=== PATIENT | female | born 1970 | race Two or more races ===

== ENCOUNTER → 2016-12-23 | Outpatient (CLI) | payer MEDICARE, OTHER ==
--- NOTE | 2016-12-23 16:55 | NM ---
EXAMINATION TYPE: NM bone scan whole body DATE OF EXAM: 12/23/2016 2:26 PM COMPARISON: NONE HISTORY: Lung nodule, chest pain Delayed whole-body scanning was performed following the injection of 26.4 mCi Tc 99m MDP. Images acq uired 3 hours post injection. FINDINGS: There is a spinal curvature. Soft tissue uptake is thought to be normal. Suspect there is urine conta mination present at the level of the patient's scrotum and clothing of the legs, right foot. IMPRESSION: Spinal curvature could be positional..
== END | disposition home or self-care (01) ==
LOC: RADNMMAIN 10:25
PROVIDERS: ATTEND Internal Medicine Critical Care Medicine
DX: R07.89 Other chest pain (principal); R91.8 Other nonspecific abnormal finding of lung field
CPT/HCPCS: 78306; A9503

== ENCOUNTER → 2017-01-09 | Outpatient (CLI) | payer MEDICARE, OTHER ==
--- NOTE | 2017-01-09 11:14 | CT ---
EXAMINATION TYPE: CT abdomen w con DATE OF EXAM: 01/09/2017 10:41 AM REFERENCE: Previous study dated 03/18/2016 HISTORY: R10.84 abd pain HISTORY: Lt sided pain CT DLP: 394.5 mGy Automated exposure control for dose reduction was used. TECHNIQUE: Helical acquisition through the abdomen and pelvis was obtained following the oral ingesti on of with Oral Contrast and following intravenous administration of 100 ml mL of Omnipaque 300. The data was reformatted in axial, coronal and sagittal projections. FINDINGS: There is some dependent atelectasis at the lung bases. There is no pleural or pericardial fluid. The left basilar pulmonary nodule seen on the previous examination is not visualized on today' s study. There is a moderate hiatal hernia present. There is an 8 mm lesion in the superior segment of the right lobe of the liver, unchanged from the pr evious study. The remainder of the liver, spleen and gallbladder are normal. Both adrenal glands are normal. Both kidneys demonstrate function. There is a 7.3 mm lesion in the lateral aspect of the mid polar re gion of the left kidney. This is more clearly seen on today's examination. This is too small accurate ly characterize. The pancreas is unremarkable. There is no significant retroperitoneal adenopathy. There is moderate fecal stasis. Small bowel loops are normal. No free fluid and no free air is seen. There is a mild levoscoliosis. No bony destructive lesion is seen. IMPRESSION: 1. Stable hepatic lesion. 2. Moderate hiatal hernia. 3. 7 mm lesion in the mid polar region of the left kidney, too small to characterize. 4. Constipation.
== END | disposition home or self-care (01) ==
LOC: RADCTMAIN 09:40
PROVIDERS: ATTEND Internal Medicine Critical Care Medicine
DX: K76.89 Other specified diseases of liver (principal); K44.9 Diaphragmatic hernia without obstruction or gangrene; N28.89 Other specified disorders of kidney and ureter; K59.00 Constipation, unspecified
CPT/HCPCS: 74160; Q9967

== ENCOUNTER 2018-08-19 17:10 | Emergency (ER) | payer MEDICARE, OTHER ==
[2018-08-19 17:26] VITALS: RESP 18
[2018-08-19] MEDS ORDERED: SODIUM CHLORIDE 0.9% 500 ML IV ONE (18:35)
[2018-08-19] MEDS ORDERED: PIPERACILLIN-TAZOBACTAM 3.375 GM in DEXTROSE/WATER 1 50ML.BAG IVPB STA (18:39)
--- NOTE | 2018-08-19 18:43 | ED ---
General Adult HPI - General Chief complaint: Urogenital Stated complaint: UTI Time Seen by Provider: 08/19/18 18:23 Source: patient Mode of arrival: wheelchair Limitations: no limitations - History of Present Illness Initial comments: 48-year-old female patient with developmental delay presents to the emergency department today for evaluation after receiving a positive urine culture from her doctor's office. Patient has history of recurrent urinary tract infections , caregiver reports is due to poor urinary hygiene. States that patient did complete a prescription for urinary tract infection about 2 weeks ago. Patient has been having persistent right sided pain so they retested her urine and culture was positive for corynebacterium regellii, Proteus mirabilis, E. coli, and an enterococcus faecalis. The urine sensitivity showed IV antibiotics only so they were instructed to come to the emergency department for admission. Patient's only symptom has been some right flank pain. Patient denies any fever , chills, nausea, or vomiting. Patient denies any recent rash, shortness breath , chest pain, diarrhea, constipation, back pain, numbness, tingling, dizziness, weakness, headache, visual changes, or any other complaints. They are unsure which antibiotic she just completed. - Related Data Home Medications Medication Instructions Recorded Confirmed Ascorbic Acid [Vitamin C] 500 mg PO DAILY 05/29/16 08/19/18 Chlorhexidine Gluconate [Peridex] 15 ml PO BID 05/29/16 08/19/18 Cholecalciferol [Vitamin D3] 2,000 unit PO DAILY 05/29/16 08/19/18 Citalopram Hydrobromide [CeleXA] 40 mg PO DAILY 05/29/16 08/19/18 Loratadine [Claritin] 10 mg PO DAILY 05/29/16 08/19/18 Multivitamin with Iron 1 tab PO DAILY 05/29/16 08/19/18 [Multivitamins with Iron] Ranitidine HCl 150 mg PO BID 05/29/16 08/19/18 Sennosides-Docusate Sodium 2 tab PO HS 05/29/16 08/19/18 [Senokot-S] busPIRone HCL [Buspar] 7.5 mg PO BID 05/29/16 08/19/18 Calcium Polycarbophil [Fibercon] 1,250 mg PO DAILY 10/03/16 08/19/18 Acetaminophen [Tylenol] 325 - 650 mg PO Q4H PRN 08/19/18 08/19/18 Atorvastatin [Lipitor] 10 mg PO HS 08/19/18 08/19/18 Baclofen [Lioresal] 10 mg PO TID PRN 08/19/18 08/19/18 Cyclobenzaprine [Flexeril] 15 mg PO HS 08/19/18 08/19/18 Ferrous Sulfate [Feosol] 325 mg PO DAILY 08/19/18 08/19/18 Lactulose [Constulose] 20 gm PO DAILY 08/19/18 08/19/18 Melatonin 10 mg PO HS 08/19/18 08/19/18 Nystatin [Nystop] 1 applic TOPICAL BID 08/19/18 08/19/18 Omeprazole 20 mg PO DAILY 08/19/18 08/19/18 Ondansetron HCl [Zofran] 4 mg PO Q12HR PRN 08/19/18 08/19/18 Triamcinolone 0.025% Cream 1 applic TOPICAL BID 08/19/18 08/19/18 [Kenalog 0.025% Cream] traZODone HCL [Desyrel] 100 mg PO HS 08/19/18 08/19/18 Previous Rx's Medication Instructions Recorded Fluconazole [Diflucan] 150 mg PO ONCE #1 tab 08/19/18 Allergies Allergy/AdvReac Type Severity Reaction Status Date / Time No Known Allergies Allergy Verified 08/19/18 18:30 Review of Systems ROS Statement: Those systems with pertinent positive or pertinent negative responses have been documented in the HPI. ROS Other: All systems not noted in ROS Statement are negative. Past Medical History Past Medical History: No Reported History Additional Past Medical History / Comment(s): cerbral palsy, intellectual disabilities, abd. pain History of Any Multi-Drug Resistant Organisms: None Reported Past Surgical History: Orthopedic Surgery Additional Past Surgical History / Comment(s): bilat ankles Past Anesthesia/Blood Transfusion Reactions: Unable to Obtain Past Psychological History: Anxiety, Depression Smoking Status: Never smoker Past Alcohol Use History: None Reported Past Drug Use History: None Reported - Past Family History Mother Family Medical History: Unable to Obtain General Exam Limitations: no limitations General appearance: alert, in no apparent distress, other (This is a well- developed, well-nourished adult female patient in no acute distress. Vital signs upon presentation are temperature 97.4F, pulse 97, respirations 18, blood pressure 153/97, pulse ox 99% on room air.) Eye exam: Present: normal appearance, PERRL, EOMI. Absent: scleral icterus, conjunctival injection, periorbital swelling ENT exam: Present: normal exam, normal oropharynx, mucous membranes moist Respiratory exam: Present: normal lung sounds bilaterally. Absent: respiratory distress, wheezes, rales, rhonchi, stridor Cardiovascular Exam: Present: regular rate, normal rhythm, normal heart sounds. Absent: systolic murmur, diastolic murmur, rubs, gallop, clicks GI/Abdominal exam: Present: soft, normal bowel sounds. Absent: distended, tenderness, guarding, rebound, rigid Back exam: Present: normal inspection. Absent: CVA tenderness (R), CVA tenderness (L) Neurological exam: Present: alert, oriented X3, CN II-XII intact Psychiatric exam: Present: normal affect, normal mood Skin exam: Present: warm, dry, intact, normal color. Absent: rash Course Vital Signs 08/19/18 08/19/18 08/19/18 17:22 20:46 21:37 Temperature 97.4 F L 98.2 F Pulse Rate 97 94 100 Respiratory 18 18 18 Rate Blood Pressure 153/97 161/82 162/90 O2 Sat by Pulse 99 100 99 Oximetry EKG Findings - EKG Comments: EKG Findings:: EKG obtained at 2057 shows normal sinus rhythm with an incomplete right bundle branch block. Ventricular rate is 90, P return to the 152, QRS duration 100, QT 374, QTC 457. No evidence of ST elevation or depression. Medical Decision Making - Medical Decision Making 48-year-old female patient presented to the emergency department today after having a positive urine culture results. Physical exam today is unremarkable. There is no CVA tenderness, no abdominal tenderness. Labs reviewed and did reveal an elevated white blood cell count at 10.9. Urinalysis showed no evidence for infection at this time. Patient's vital signs are stable, she is afebrile. Urine was sent for culture. During catheterization that was evidence for vulvovaginal candidiasis, patient did recently complete antibiotics. Patient be treated with Diflucan for this. I did discuss findings and results with the patient and her caregiver. They will be discharged home at this time with instructions to await urine culture results. They're instructed to follow-up with the primary care physician for recheck as soon as possible. Return parameters discussed in detail. They verbalize understanding and agree with this plan. - Lab Data Result diagrams: 08/19/18 19:00 08/19/18 19:00 Lab Results 08/19/18 08/19/18 08/19/18 Range/Units 19:00 19:00 20:23 WBC 10.9 H (3.8-10.6) k/uL RBC 4.99 (3.80-5.40) m/uL Hgb 14.1 (11.4-16.0) gm/dL Hct 42.7 (34.0-46.0) % MCV 85.6 (80.0-100.0) fL MCH 28.2 (25.0-35.0) pg MCHC 33.0 (31.0-37.0) g/dL RDW 13.4 (11.5-15.5) % Plt Count 316 (150-450) k/uL Neutrophils % 74 % Lymphocytes % 19 % Monocytes % 4 % Eosinophils % 2 % Basophils % 1 % Neutrophils # 8.0 H (1.3-7.7) k/uL Lymphocytes # 2.0 (1.0-4.8) k/uL Monocytes # 0.4 (0-1.0) k/uL Eosinophils # 0.2 (0-0.7) k/uL Basophils # 0.1 (0-0.2) k/uL Sodium 140 (137-145) mmol/L Potassium 4.8 (3.5-5.1) mmol/L Chloride 104 (98-107) mmol/L Carbon Dioxide 24 (22-30) mmol/L Anion Gap 12 mmol/L BUN 16 (7-17) mg/dL Creatinine 0.61 (0.52-1.04) mg/dL Est GFR (CKD-EPI)AfAm >90 (>60 ml/min/1.73 sqM) Est GFR (CKD-EPI)NonAf >90 (>60 ml/min/1.73 sqM) Glucose 100 H (74-99) mg/dL Calcium 9.7 (8.4-10.2) mg/dL Total Bilirubin 0.4 (0.2-1.3) mg/dL AST 25 (14-36) U/L ALT 37 (9-52) U/L Alkaline Phosphatase 100 (38-126) U/L Total Protein 7.3 (6.3-8.2) g/dL Albumin 4.5 (3.5-5.0) g/dL Urine Color Light Yellow Urine Appearance Clear (Clear) Urine pH 7.0 (5.0-8.0) Ur Specific [place] 1.007 (1.001-1.035) Urine Protein Negative (Negative) Urine Glucose (UA) Negative (Negative) Urine Ketones Negative (Negative) Urine Blood Negative (Negative) Urine Nitrite Negative (Negative) Urine Bilirubin Negative (Negative) Urine Urobilinogen <2.0 (<2.0) mg/dL Ur Leukocyte Esterase Negative (Negative) Disposition Clinical Impression: Vulvovaginal candidiasis Disposition: HOME SELF-CARE Condition: Good Instructions: Yeast Infection (ED) Additional Instructions: Take medications as instructed. Follow-up with her primary care physician for recheck in 1-2 days away culture results on the urine. Return here immediately for any new, worsening, or concerning symptoms. Prescriptions: Fluconazole [Diflucan] 150 mg PO ONCE #1 tab Is patient prescribed a controlled substance at d/c from ED?: No Referrals: Joaquim Swenson MD [Primary Care Provider] - 1-2 days Time of Disposition: 21:20
[2018-08-19 19:16] LABS: Basophils # (A) 0.1 k/uL (0-0.2); Basophils % (A) 1 %; Eosinophils # (A) 0.2 k/uL (0-0.7); Eosinophils % (A) 2 %; HCT 42.7 % (34.0-46.0); HGB 14.1 gm/dL (11.4-16.0); Lymphocytes % (A) 19 %; MCH 28.2 pg (25.0-35.0); MCV 85.6 fL (80.0-100.0); Mean Platelet Volume 6.6; Monocytes # (A) 0.4 k/uL (0-1.0); Monocytes % (A) 4 %; Neutrophils % (A) 74 %; Platelet Count 316 k/uL (150-450); RBC 4.99 m/uL (3.80-5.40); RDW 13.4 % (11.5-15.5); WBC 10.9 k/uL (3.8-10.6)
[2018-08-19 19:30] LABS: ALT 37 U/L (9-52); AST 25 U/L (14-36); Albumin 4.5 g/dL (3.5-5.0); Alkaline Phosphatase 100 U/L (38-126); Anion Gap 12 mmol/L; Blood Urea Nitrogen 16 mg/dL (7-17); Calcium 9.7 mg/dL (8.4-10.2); Carbon Dioxide 24 mmol/L (22-30); Chloride 104 mmol/L (98-107); Glucose 100 mg/dL (74-99); Potassium 4.8 mmol/L (3.5-5.1); Sodium 140 mmol/L (137-145); Total Bilirubin 0.4 mg/dL (0.2-1.3); Total Protein 7.3 g/dL (6.3-8.2)
[2018-08-19 20:46] LABS: Appearance,Urine Clear (Clear); Bilirubin,Urine Negative (Negative); Blood,Urine Negative (Negative); Color,Urine Light Yellow; Glucose,Urine (UA) Negative (Negative); Ketones,Urine Negative (Negative); Leukocyte Esterase,Urine Negative (Negative); Nitrite,Urine Negative (Negative); Protein,Urine Negative (Negative); Specific Gravity,Urine 1.007 (1.001-1.035); Urobilinogen,Urine <2.0 mg/dL (<2.0)
[2018-08-19] MEDS ORDERED: FLUCONAZOLE 100 MG TAB PO ONE (21:05)
[2018-08-19 21:38] VITALS: BP 162/90; PULSE 100; TEMP 98.2
== END 2018-08-19 21:38 | disposition home or self-care (01) ==
LOC: EC 17:10
DX: B37.3 Candidiasis of vulva and vagina (principal); D72.829 Elevated white blood cell count, unspecified; F81.9 Developmental disorder of scholastic skills, unspecified; F32.9 Major depressive disorder, single episode, unspecified; F41.9 Anxiety disorder, unspecified; Z79.52 Long term (current) use of systemic steroids; Z79.899 Other long term (current) drug therapy
CPT/HCPCS: 36415; 80053; 81003; 85025; 87040; 87086; 93005; 96365; 96366; 99284

== ENCOUNTER → 2019-04-13 | Outpatient (CLI) | payer MEDICARE, OTHER | END | disposition home or self-care (01) | LOC: WWCWWP 10:13 | PROVIDERS: ATTEND Obstetrics & Gynecology | DX: Z53.9 Procedure and treatment not carried out, unspecified reason (principal) ==

== ENCOUNTER → 2019-05-03 | Outpatient (CLI) | payer MEDICARE, OTHER ==
--- NOTE | 2019-05-04 07:26 | US ---
EXAMINATION TYPE: US kidneys/renal and bladder DATE OF EXAM: 05/03/2019 COMPARISON: NONE CLINICAL HISTORY: Recurrent UTI N39.0. EXAM MEASUREMENTS: Right Kidney: 8.2 x 2.7 x 3.8 cm Left Kidney: 9.2 x 3.4 x 4.1 cm Patient scanned in wheelchair, unable to hold her breath. Technically difficult and limited study. Right Kidney: limited views measures small with mildly thickened cortex. Left Kidney: wnl as seen, limited views Bladder: Few internal echoes Bilateral Jets seen: yes There is no evidence for hydronephrosis at this point in time. No nephrolithiasis is seen. No jasbir s are identified. The urinary bladder is anechoic. Bilateral ureteral jets are seen. IMPRESSION: 1. No hydronephrosis or nephrolithiasis. There is mild right renal atrophy and mildly thinned cortex in the right. 2. There are few internal echoes within the urinary bladder that could relate to cystitis or simply r everberation artifact. Correlate with urinalysis.
== END | disposition home or self-care (01) ==
LOC: RADUSWWP 13:30
PROVIDERS: ATTEND Urology
DX: N26.1 Atrophy of kidney (terminal) (principal); R93.49 Abnormal radiologic findings on diagnostic imaging of other urinary organs
CPT/HCPCS: 76770

== ENCOUNTER → 2019-05-23 | Outpatient (CLI) | payer MEDICARE, OTHER ==
--- NOTE | 2019-05-24 09:16 | MM ---
Reason for exam: screening (asymptomatic). Last mammogram was performed 3 years and 5 months ago. Physical Findings: A clinical breast exam by your physician is recommended on an annual basis and results should be correlated with mammographic findings. MG 3D Screening Mammo W/Cad Bilateral CC and MLO view(s) were taken. Prior study comparison: December 11, 2015, bilateral MG screening mammo w CAD. October 19, 2014, bilateral MG screening mammo w CAD. The breast tissue is heterogeneously dense. This may lower the sensitivity of mammography. No suspicious abnormality. No significant changes when compared with prior studies. ASSESSMENT: Negative, BI-RAD 1 RECOMMENDATION: Routine screening mammogram of both breasts in 1 year.
== END | disposition home or self-care (01) ==
LOC: RADMAMWWP 14:40
PROVIDERS: ATTEND General Practice
DX: Z12.31 Encounter for screening mammogram for malignant neoplasm of breast (principal)
CPT/HCPCS: 77063; 77067

== ENCOUNTER 2019-05-31 16:02 | Emergency (ER) | payer MEDICARE, OTHER ==
[2019-05-31] MEDS ORDERED: PANTOPRAZOLE 40 MG/10 ML VIAL IVP STA (16:44)
[2019-05-31] MEDS ORDERED: ONDANSETRON 4 MG/2 ML VIAL IVP STA (16:44)
[2019-05-31] MEDS ORDERED: SODIUM CHLORIDE 0.9% 1,000 ML IV STA (16:44)
[2019-05-31 17:15] LABS: Basophils # (A) 0.1 k/uL (0-0.2); Basophils % (A) 1 %; Eosinophils # (A) 0.2 k/uL (0-0.7); Eosinophils % (A) 2 %; HCT 38.9 % (34.0-46.0); HGB 12.5 gm/dL (11.4-16.0); Lymphocytes # (A) 1.6 k/uL (1.0-4.8); Lymphocytes % (A) 16 %; MCHC 32.2 g/dL (31.0-37.0); MCV 86.9 fL (80.0-100.0); Mean Platelet Volume 6.4; Monocytes # (A) 0.4 k/uL (0-1.0); Monocytes % (A) 4 %; Neutrophils # (A) 7.7 k/uL (1.3-7.7); Neutrophils % (A) 76 %; Platelet Count 398 k/uL (150-450); RBC 4.47 m/uL (3.80-5.40); RDW 13.8 % (11.5-15.5); WBC 10.2 k/uL (3.8-10.6)
--- NOTE | 2019-05-31 17:20 | ED ---
GI Bleed HPI - General Chief complaint: GI Bleed Stated complaint: GI bleed Time Seen by Provider: 05/31/19 16:20 Source: patient, Caregiver Mode of arrival: wheelchair Limitations: no limitations - History of Present Illness Initial comments: The patient is a 49-year-old female with past medical history of cerebral palsy who presents to the emergency department with reported emesis. The patient started having emesis last night. Caretakers appetitive provide majority of the history. She states that she did have several episodes of dark vomit today. They deny history of similar in the past. No history of peptic ulcer disease. The patient does take ibuprofen daily. No alcohol use. She reports to mild left upper quadrant abdominal pain. She denies any melanotic stools, hematochezia or constipation. She has had a few episodes of loose stooling. No reported fevers, chills, recent antibiotic use or travel. Denies syncope or presyncope. No sick contacts with similar symptoms. Denies eating any tainted foods. She denies any chest pain, shortness of breath or hemoptysis. She is not on any blood thinning medications. She was supposed to have a colonoscopy several weeks ago however the patient didn't tolerate the prep. She's never had an EGD. There are no other alleviating, precipitating or modifying factors - Related Data Home Medications Medication Instructions Recorded Confirmed Ascorbic Acid [Vitamin C] 500 mg PO DAILY 05/29/16 05/31/19 Chlorhexidine Gluconate [Peridex] 15 ml PO BID 05/29/16 05/31/19 Citalopram Hydrobromide [CeleXA] 40 mg PO DAILY 05/29/16 05/31/19 Loratadine [Claritin] 10 mg PO DAILY 05/29/16 05/31/19 Ranitidine HCl 150 mg PO BID 05/29/16 05/31/19 Sennosides-Docusate Sodium 2 tab PO HS 05/29/16 05/31/19 [Senokot-S] busPIRone HCL [Buspar] 7.5 mg PO BID 05/29/16 05/31/19 Acetaminophen [Tylenol] 650 mg PO Q4-6H PRN 08/19/18 05/31/19 Atorvastatin [Lipitor] 10 mg PO HS 08/19/18 05/31/19 Baclofen [Lioresal] 10 mg PO TID 08/19/18 05/31/19 Cyclobenzaprine [Flexeril] 10 mg PO HS 08/19/18 05/31/19 Ferrous Sulfate [Feosol] 325 mg PO DAILY 08/19/18 05/31/19 Lactulose [Constulose] 30 gm PO DAILY 08/19/18 05/31/19 Melatonin 10 mg PO HS 08/19/18 05/31/19 Nystatin [Nystop] 1 applic TOPICAL BID 08/19/18 05/31/19 Omeprazole 20 mg PO DAILY 08/19/18 05/31/19 Ondansetron HCl [Zofran] 4 mg PO Q12HR PRN 08/19/18 05/31/19 Triamcinolone 0.025% Cream 1 applic TOPICAL BID 08/19/18 05/31/19 [Kenalog 0.025% Cream] traZODone HCL [Desyrel] 100 mg PO HS 08/19/18 05/31/19 Butalb/APAP/Caff 50-325-40Mg 1 tab PO BID PRN 05/12/19 05/31/19 [Fioricet 50-325-40] Cetaphil Cleanser 1 applic TOPICAL BID 05/12/19 05/31/19 Hydrochlorothiazide [Hydrodiuril] 25 mg PO DAILY 05/12/19 05/31/19 Ibuprofen [Motrin] 600 mg PO BID 05/12/19 05/31/19 Metoprolol Succinate [Toprol XL] 25 mg PO DAILY 05/12/19 05/31/19 Multivit-Min/FA/Lycopen/Lutein 1 tab PO DAILY 05/12/19 05/31/19 [Centrum Silver Tablet] Oxybutynin Chloride [Ditropan] 5 mg PO TID 05/12/19 05/31/19 Calcium Polycarbophil [Fiber-Lax] 625 mg PO DAILY 05/31/19 05/31/19 Cholecalciferol (Vitamin D3) 2,000 unit PO DAILY 05/31/19 05/31/19 [Vitamin D3] Cyclobenzaprine [Flexeril] 5 mg PO HS 05/31/19 05/31/19 Allergies Allergy/AdvReac Type Severity Reaction Status Date / Time No Known Allergies Allergy Verified 07/02/19 17:04 Review of Systems ROS Statement: Those systems with pertinent positive or pertinent negative responses have been documented in the HPI. ROS Other: All systems not noted in ROS Statement are negative. Past Medical History Past Medical History: Hypertension, Musculoskeletal Disorder Additional Past Medical History / Comment(s): Cerbral palsy, intellectual disa bilities, mixed incontinance. ALERT & ORIENTED. USES WHEELCHAIR, CAN BEAR WGT W/ ASSISTANCE, UNABLE TO TWIST/BEND. 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 Abd pain/Constipation. History of Any Multi-Drug Resistant Organisms: None Reported Past Surgical History: Orthopedic Surgery Additional Past Surgical History / Comment(s): bilat ankles Past Anesthesia/Blood Transfusion Reactions: Unable to Obtain Past Psychological History: Anxiety, Depression Smoking Status: Never smoker Past Alcohol Use History: None Reported Past Drug Use History: None Reported - Past Family History Mother Family Medical History: Unable to Obtain General Exam Limitations: no limitations Course Vital Signs 05/31/19 05/31/19 05/31/19 16:11 17:30 18:00 Temperature 98.5 F Pulse Rate 92 81 91 Respiratory 18 16 16 Rate Blood Pressure 130/89 141/89 131/69 O2 Sat by Pulse 97 95 97 Oximetry 05/31/19 19:04 Temperature 98.8 F Pulse Rate 90 Respiratory 18 Rate Blood Pressure 122/79 O2 Sat by Pulse 97 Oximetry Medical Decision Making - Medical Decision Making The patient was seen by myself. She was placed into room 15. She is hooked up to continuous pulse ox and cardiac monitoring. I did perform a rectal exam which demonstrated a small amount of brown stool. The patient does have emesis undershirt which is brown in color. I did recommend laboratory studies and a CT of the patient's abdomen and pelvis. Upon return results are discussed with the electrician assistant at bedside. The patient does test negative for occult blood. Her hemoglobin is 12 at this time. We did obtain an IV and the patient was given 40 mg of Protonix as well as 4 mg of Zofran. She is reevaluated and has not had any vomiting while within the emergency room. Patient states that she feels better at this time. I did inform them that the patient was to follow closely in office. She will need to have an EGD and colonoscopy performed. The patient has any new or worsening symptoms she should be brought back to the emergency department. I did offer to write the patient a prescription for Zofran however the electrician assistant states the patient has this medication as a when necessary order at home already. The patient wasn't discharged home in stable condition - Lab Data Result diagrams: 05/31/19 17:05 05/31/19 17:05 Lab Results 05/31/19 05/31/19 05/31/19 Range/Units 17:05 17:05 17:05 WBC 10.2 (3.8-10.6) k/uL RBC 4.47 (3.80-5.40) m/uL Hgb 12.5 (11.4-16.0) gm/dL Hct 38.9 (34.0-46.0) % MCV 86.9 (80.0-100.0) fL MCH 28.0 (25.0-35.0) pg MCHC 32.2 (31.0-37.0) g/dL RDW 13.8 (11.5-15.5) % Plt Count 398 (150-450) k/uL Neutrophils % 76 % Lymphocytes % 16 % Monocytes % 4 % Eosinophils % 2 % Basophils % 1 % Neutrophils # 7.7 (1.3-7.7) k/uL Lymphocytes # 1.6 (1.0-4.8) k/uL Monocytes # 0.4 (0-1.0) k/uL Eosinophils # 0.2 (0-0.7) k/uL Basophils # 0.1 (0-0.2) k/uL PT (9.0-12.0) sec INR (<1.2) APTT (22.0-30.0) sec Sodium 140 (137-145) mmol/L Potassium 4.2 (3.5-5.1) mmol/L Chloride 105 (98-107) mmol/L Carbon Dioxide 26 (22-30) mmol/L Anion Gap 9 mmol/L BUN 19 H (7-17) mg/dL Creatinine 0.57 (0.52-1.04) mg/dL Est GFR (CKD-EPI)AfAm >90 (>60 ml/min/1.73 sqM) Est GFR (CKD-EPI)NonAf >90 (>60 ml/min/1.73 sqM) Glucose 102 H (74-99) mg/dL Plasma Lactic Acid Phil (0.7-2.0) mmol/L Calcium 9.4 (8.4-10.2) mg/dL Magnesium 2.3 (1.6-2.3) mg/dL Total Bilirubin 0.3 (0.2-1.3) mg/dL AST 25 (14-36) U/L ALT 27 (9-52) U/L Alkaline Phosphatase 81 (38-126) U/L Ammonia (<30) umol/L Total Protein 7.2 (6.3-8.2) g/dL Albumin 4.2 (3.5-5.0) g/dL Lipase 74 (23-300) U/L Urine Color Urine Appearance (Clear) Urine pH (5.0-8.0) Ur Specific [place] (1.001-1.035) Urine Protein (Negative) Urine Glucose (UA) (Negative) Urine Ketones (Negative) Urine Blood (Negative) Urine Nitrite (Negative) Urine Bilirubin (Negative) Urine Urobilinogen (<2.0) mg/dL Ur Leukocyte Esterase (Negative) Stool Occult Blood Negative (Negative) Blood Type Blood Type Confirm Blood Type Recheck Antibody Screen Spec Expiration Date 05/31/19 05/31/19 05/31/19 Range/Units 17:05 17:05 17:13 WBC (3.8-10.6) k/uL RBC (3.80-5.40) m/uL Hgb (11.4-16.0) gm/dL Hct (34.0-46.0) % MCV (80.0-100.0) fL MCH (25.0-35.0) pg MCHC (31.0-37.0) g/dL RDW (11.5-15.5) % Plt Count (150-450) k/uL Neutrophils % % Lymphocytes % % Monocytes % % Eosinophils % % Basophils % % Neutrophils # (1.3-7.7) k/uL Lymphocytes # (1.0-4.8) k/uL Monocytes # (0-1.0) k/uL Eosinophils # (0-0.7) k/uL Basophils # (0-0.2) k/uL PT 9.7 (9.0-12.0) sec INR 0.9 (<1.2) APTT 26.4 (22.0-30.0) sec Sodium (137-145) mmol/L Potassium (3.5-5.1) mmol/L Chloride (98-107) mmol/L Carbon Dioxide (22-30) mmol/L Anion Gap mmol/L BUN (7-17) mg/dL Creatinine (0.52-1.04) mg/dL Est GFR (CKD-EPI)AfAm (>60 ml/min/1.73 sqM) Est GFR (CKD-EPI)NonAf (>60 ml/min/1.73 sqM) Glucose (74-99) mg/dL Plasma Lactic Acid Phil 0.8 (0.7-2.0) mmol/L Calcium (8.4-10.2) mg/dL Magnesium (1.6-2.3) mg/dL Total Bilirubin (0.2-1.3) mg/dL AST (14-36) U/L ALT (9-52) U/L Alkaline Phosphatase (38-126) U/L Ammonia <9 (<30) umol/L Total Protein (6.3-8.2) g/dL Albumin (3.5-5.0) g/dL Lipase (23-300) U/L Urine Color Urine Appearance (Clear) Urine pH (5.0-8.0) Ur Specific [place] (1.001-1.035) Urine Protein (Negative) Urine Glucose (UA) (Negative) Urine Ketones (Negative) Urine Blood (Negative) Urine Nitrite (Negative) Urine Bilirubin (Negative) Urine Urobilinogen (<2.0) mg/dL Ur Leukocyte Esterase (Negative) Stool Occult Blood (Negative) Blood Type A Positive Blood Type Confirm Blood Type Recheck CABO Indicated Antibody Screen NEGATIVE Spec Expiration Date 06/03/2019230405/31/19 05/31/19 Range/Units 18:10 18:10 WBC (3.8-10.6) k/uL RBC (3.80-5.40) m/uL Hgb (11.4-16.0) gm/dL Hct (34.0-46.0) % MCV (80.0-100.0) fL MCH (25.0-35.0) pg MCHC (31.0-37.0) g/dL RDW (11.5-15.5) % Plt Count (150-450) k/uL Neutrophils % % Lymphocytes % % Monocytes % % Eosinophils % % Basophils % % Neutrophils # (1.3-7.7) k/uL Lymphocytes # (1.0-4.8) k/uL Monocytes # (0-1.0) k/uL Eosinophils # (0-0.7) k/uL Basophils # (0-0.2) k/uL PT (9.0-12.0) sec INR (<1.2) APTT (22.0-30.0) sec Sodium (137-145) mmol/L Potassium (3.5-5.1) mmol/L Chloride (98-107) mmol/L Carbon Dioxide (22-30) mmol/L Anion Gap mmol/L BUN (7-17) mg/dL Creatinine (0.52-1.04) mg/dL Est GFR (CKD-EPI)AfAm (>60 ml/min/1.73 sqM) Est GFR (CKD-EPI)NonAf (>60 ml/min/1.73 sqM) Glucose (74-99) mg/dL Plasma Lactic Acid Phil (0.7-2.0) mmol/L Calcium (8.4-10.2) mg/dL Magnesium (1.6-2.3) mg/dL Total Bilirubin (0.2-1.3) mg/dL AST (14-36) U/L ALT (9-52) U/L Alkaline Phosphatase (38-126) U/L Ammonia (<30) umol/L Total Protein (6.3-8.2) g/dL Albumin (3.5-5.0) g/dL Lipase (23-300) U/L Urine Color Yellow Urine Appearance Clear (Clear) Urine pH 7.5 (5.0-8.0) Ur Specific [place] 1.016 (1.001-1.035) Urine Protein Negative (Negative) Urine Glucose (UA) Negative (Negative) Urine Ketones Negative (Negative) Urine Blood Negative (Negative) Urine Nitrite Negative (Negative) Urine Bilirubin Negative (Negative) Urine Urobilinogen <2.0 (<2.0) mg/dL Ur Leukocyte Esterase Negative (Negative) Stool Occult Blood (Negative) Blood Type Blood Type Confirm A Positive Blood Type Recheck Antibody Screen Spec Expiration Date Disposition Clinical Impression: Nausea & vomiting Disposition: HOME SELF-CARE Condition: Stable Instructions (If sedation given, give patient instructions): Acute Nausea and Vomiting (ED) Additional Instructions: Please follow-up with your primary care doctor in 1-2 days. You will need an EGD and colonoscopy. Return to the emergency room should you have any new or worsening symptoms. Take the Zofran you are prescribed as needed for vomiting. Is patient prescribed a controlled substance at d/c from ED?: No Referrals: Joaquim Swenson MD [Primary Care Provider] - 1-2 days Time of Disposition: 18:47
[2019-05-31 17:23] LABS: ALT 27 U/L (9-52); AST 25 U/L (14-36); African American GFR (CKD) >90 (>60 ml/min/1.73 sqM); Albumin 4.2 g/dL (3.5-5.0); Alkaline Phosphatase 81 U/L (38-126); Anion Gap 9 mmol/L; Blood Urea Nitrogen 19 mg/dL (7-17); Calcium 9.4 mg/dL (8.4-10.2); Carbon Dioxide 26 mmol/L (22-30); Chloride 105 mmol/L (98-107); Glucose 102 mg/dL (74-99); Lipase 74 U/L (23-300); Magnesium 2.3 mg/dL (1.6-2.3); Potassium 4.2 mmol/L (3.5-5.1); Sodium 140 mmol/L (137-145); Total Bilirubin 0.3 mg/dL (0.2-1.3); Total Protein 7.2 g/dL (6.3-8.2)
[2019-05-31 17:24] LABS: INR 0.9 (<1.2); Partial Thromboplastin Time 26.4 sec (22.0-30.0); Prothrombin Time 9.7 sec (9.0-12.0)
[2019-05-31 17:29] LABS: Ammonia <9 umol/L (<30); Lactic Acid, Venous 0.8 mmol/L (0.7-2.0)
--- NOTE | 2019-05-31 18:06 | CT ---
EXAMINATION TYPE: CT abdomen pelvis w con DATE OF EXAM: 05/31/2019 COMPARISON: 01/09/2017 HISTORY: generalized pain with vomiting CT DLP: 882.4 mGycm Automated exposure control for dose reduction was used. TECHNIQUE: Helical acquisition of images was performed from the lung bases through the pelvis. CONTRAST: Performed without Oral Contrast and with IV Contrast, patient injected with 50 mL of Isovue 370. FINDINGS: There is minimal subsegmental atelectasis at the lung bases. There is moderate sized hiatal hernia. H eart size is normal. There is no pericardial effusion. There is no pleural effusion. Gallbladder appears normal. There is 1 cm cyst in the anterior right lobe of the liver. Bile ducts ar e not dilated. Spleen appears normal. There is no pancreatic mass. There is no adrenal mass. Kidneys show satisfactory contrast opacification. There is no hydronephrosi s. There is a 1 cm cortical cyst lateral left kidney. There is no retroperitoneal adenopathy. Ureters are not dilated. Bladder distends smoothly. There is no inguinal hernia. Uterus is anteverted. The l eft there is retained fecal material throughout the large bowel. Rectum is dilated up to 7.1 cm. There is no ascites. There is no free air. There is no mesenteric edema. The cecum is in the right up per quadrant. Appendix appears normal. Appendix is adjacent to the liver. The lumbar spine is intact. Bony pelvis appears intact. I see no bony destructive process. Small yuan l appears normal. IMPRESSION: NORMAL APPENDIX. NO RENAL STONE OR OBSTRUCTION. MODERATE CONSTIPATION. MILD RECTAL FECAL IMPACTION. HEPATIC AND RENAL CYST UNCHANGED. HIATAL HERNIA INCREASED COMPARED TO OLD EXAM.
[2019-05-31 18:37] LABS: Appearance,Urine Clear (Clear); Bilirubin,Urine Negative (Negative); Blood,Urine Negative (Negative); Color,Urine Yellow; Glucose,Urine (UA) Negative (Negative); Ketones,Urine Negative (Negative); Leukocyte Esterase,Urine Negative (Negative); Nitrite,Urine Negative (Negative); PH, Urine 7.5 (5.0-8.0); Protein,Urine Negative (Negative); Specific Gravity,Urine 1.016 (1.001-1.035); Urobilinogen,Urine <2.0 mg/dL (<2.0)
[2019-05-31 19:06] VITALS: BP 122/79; PULSE 90; RESP 18; TEMP 98.8
== END 2019-05-31 19:06 | disposition home or self-care (01) ==
LOC: EC 16:02
DX: R11.2 Nausea with vomiting, unspecified (principal); R19.8 Other specified symptoms and signs involving the digestive system and abdomen; R10.12 Left upper quadrant pain; I10 Essential (primary) hypertension; F32.9 Major depressive disorder, single episode, unspecified; F41.9 Anxiety disorder, unspecified; Z79.1 Long term (current) use of non-steroidal anti-inflammatories (NSAID); Z79.899 Other long term (current) drug therapy; Z99.3 Dependence on wheelchair
CPT/HCPCS: 36415; 86900; 86901; 80053; 82140; 83605; 83690; 83735; 85025; 85610; 85730; 86850; 82272; 81003; 74177; 99284; 96374; 96375; 96361; J2405; C9113; Q9967

== ENCOUNTER 2019-08-05 10:31 | Day surgery (SDC) | payer MEDICARE, OTHER ==
[2019-08-04 08:24] VITALS: BMI 27.6
[~2019-08-05 10:31] MED LIST: LACTATED RINGERS 1,000 ML IV SCH; LIDOCAINE 1% 20 ML VIAL (10MG/ML) FOR IV START INTRADERMA PRN
[2019-08-05 11:03] VITALS: TEMP 98.4
[2019-08-05] MEDS ORDERED: PROPOFOL 10 MG/ML 20 ML VIAL IV ONE (12:11)
[2019-08-05] MEDS ORDERED: LIDOCAINE 1% INJ 10MG/ML (20 ML MDV) ONE (12:11)
--- NOTE | 2019-08-05 12:19 | P.PCN ---
Date of Procedure: 08/05/19 Procedure(s) Performed: BRIEF HISTORY: Patient is a 49-year-old, pleasant, white female with history of cerebral palsy scheduled for an upper endoscopy as a part of evaluation of intermittent nausea vomiting for the last several months duration. She has these episodes at least 3-4 times a week. She is been on Zofran and Reglan with no help. PROCEDURE PERFORMED: Esophagogastroduodenoscopy with biopsy. PREOPERATIVE DIAGNOSIS: Chronic intermittent nausea and vomiting a few months duration. IV sedation per anesthesia. PROCEDURE: After informed consent was obtained, the patient was brought into the endoscopy unit. IV sedation was administered by Anesthesia under continuous monitoring. Initially the Olympus GIF-140 video endoscope was inserted into the mouth. Esophagus intubated without any difficulty. It was gradually advanced into the stomach and duodenum and carefully examined. The bulb and the second part of the duodenum appeared normal. The scope at this time was withdrawn to the stomach, adequately insufflated with air, and upon careful examination, mucosa of the antrum and mild gastritis and biopsies were done from this area. The, body, cardia and the fundus appeared normal. The scope was then withdrawn into the esophagus. Moderate size hiatal hernia noted. The GE junction was located at 31 cm from the incisors. They revealed linear erosions and ulcerations in the distal esophagus extending from 20-31 cm from the incisors consistent with LA grade B reflux esophagitis. The proximal cervical esophagus appeared normal and the patient tolerated the procedure well. IMPRESSION: 1. Several linear erosions or ulcerations in the mid and distal esophagus consistent with severe LA grade D reflux esophagitis. 2. Moderate Size hiatal hernia. RECOMMENDATIONS: The findings of this examination were discussed with the patient as well as her caregiver. At this time she'll be started on Prilosec 20 mg twice daily and antiemetics as needed. She'll be seen in office in 6 weeks..
[2019-08-05 12:55] VITALS: BP 133/90; PULSE 94; RESP 18
== END 2019-08-05 13:10 | disposition home or self-care (01) ==
LOC: ORWHC2ENDO 10:31
PROVIDERS: ATTEND Internal Medicine Gastroenterology
DX: K29.50 Unspecified chronic gastritis without bleeding (principal); K44.9 Diaphragmatic hernia without obstruction or gangrene; G80.9 Cerebral palsy, unspecified; I10 Essential (primary) hypertension; K21.0 Gastro-esophageal reflux disease with esophagitis; Z79.899 Other long term (current) drug therapy
CPT/HCPCS: 88305; 43239; J2001; J2704

== ENCOUNTER → 2020-05-21 | Day surgery (SDC) | payer MEDICARE, OTHER ==
[~2020-05-21] MED LIST changes: +CEFTAZIDIME/AVIBACTAM 2.5 GM in SODIUM CHLORIDE 0.9% 100 ML IVPB ONE; +IOPAMIDOL-370 50ML BTL INJ ONE; -LACTATED RINGERS 1,000 ML IV SCH; -LIDOCAINE 1% 20 ML VIAL (10MG/ML) FOR IV START INTRADERMA PRN; +LIDOCAINE 1% INJ 10MG/ML (20 ML MDV) SQ ONE
[2020-05-21 10:24] VITALS: BP 133/76; PULSE 96; RESP 16; TEMP 98.3
[2020-05-21 10:40] LABS: Anisocytosis Slight; Basophils # (A) 0.1 k/uL (0-0.2); Basophils % (A) 1 %; Eosinophils # (A) 0.1 k/uL (0-0.7); Eosinophils % (A) 1 %; HCT 28.3 % (34.0-46.0); HGB 8.4 gm/dL (11.4-16.0); Hypochromasia Marked; Lymphocytes # (A) 1.8 k/uL (1.0-4.8); Lymphocytes % (A) 28 %; MCH 21.4 pg (25.0-35.0); MCHC 29.8 g/dL (31.0-37.0); MCV 71.7 fL (80.0-100.0); Mean Platelet Volume 8.1; Microcytosis Moderate; Monocytes # (A) 0.5 k/uL (0-1.0); Monocytes % (A) 8 %; Neutrophils # (A) 3.9 k/uL (1.3-7.7); Neutrophils % (A) 59 %; Platelet Count 458 k/uL (150-450); RBC 3.94 m/uL (3.80-5.40); RDW 16.1 % (11.5-15.5); WBC 6.5 k/uL (3.8-10.6)
[2020-05-21 10:48] LABS: African American GFR (CKD) >90 (>60 ml/min/1.73 sqM); Anion Gap 7 mmol/L; Blood Urea Nitrogen 15 mg/dL (7-17); Carbon Dioxide 29 mmol/L (22-30); Chloride 102 mmol/L (98-107); Non-African American GFR(CKD) >90 (>60 ml/min/1.73 sqM); Potassium 4.3 mmol/L (3.5-5.1); Sodium 138 mmol/L (137-145)
--- NOTE | 2020-05-21 11:45 | IR ---
PICC LINE PLACEMENT: HISTORY: Infection requiring long-term antibiotic therapy PROCEDURE: Ultrasound and fluoroscopic guidance of PICC line placement. COMPLICATIONS: None ANESTHESIA: 1. 1% Lidocaine locally. FINDINGS/TECHNIQUE: The procedure was explained to the patient. The risks, complications, benefits and alternatives were discussed and any questions were answered. Informed consent was obtained. The patient was placed supine on the fluoroscopic table and prepped and draped in the usual sterile fash ion. Utilizing a 21 gauge needle and sonographic and fluoroscopic guidance there was no sizable vei n for percutaneous access. The patient was stable throughout the procedure and remained stable upon d ischarge from the Department of Radiology. The vein puncture was patent under ultrasound. A schafer scale image was obtained to document patency of the vein punctured. All elements of the maximal barrier technique were utilized. FLUOROSCOPY TIME: 1.1 minutes and 4 images submitted IMPRESSION: Unsuccessful PICC line placement. Surgical consultation suggest.
== END ==
LOC: CATHCVL 09:55
PROVIDERS: ATTEND Radiology Diagnostic Radiology
DX: N39.0 Urinary tract infection, site not specified (principal); Z53.09 Procedure and treatment not carried out because of other contraindication; I10 Essential (primary) hypertension; F41.9 Anxiety disorder, unspecified; K59.09 Other constipation; K21.9 Gastro-esophageal reflux disease without esophagitis; G47.00 Insomnia, unspecified; D50.9 Iron deficiency anemia, unspecified; G89.29 Other chronic pain; E78.2 Mixed hyperlipidemia; F32.0 Major depressive disorder, single episode, mild; Z87.442 Personal history of urinary calculi; Z79.899 Other long term (current) drug therapy
CPT/HCPCS: 36573; 80051; 82565; 84520; 85025; C1751; C1769; J2001; Q9967

== ENCOUNTER → 2020-05-28 | Day surgery (SDC) | payer MEDICARE, OTHER ==
[2020-05-24 09:11] VITALS: BMI 27.9
[~2020-05-28] MED LIST changes: +ACETAMINOPHEN TAB 500 MG TAB ONE; +ACETAMINOPHEN TAB 500 MG TAB PO ONE; +BUPIVACAIN-EPI 0.25%-1:200,000 30 ML VIAL SQ ONE; -CEFTAZIDIME/AVIBACTAM 2.5 GM in SODIUM CHLORIDE 0.9% 100 ML IVPB ONE; +DEXAMETHASONE SOD PHOSPHATE 10 MG/ML 1 ML VIAL IV ONE; +HEPARIN SODIUM,PORCINE 100 UNIT/ML 5 ML VIAL IV ONE; +HEPARIN SODIUM,PORCINE 5,000 UNIT/ML 1 ML VIAL ONE; +HEPARIN SODIUM,PORCINE 5,000 UNIT/ML 1 ML VIAL SQ ONE; +HYDROmorphone 0.5 MG/0.5 ML SYRINGE IVP PRN; -IOPAMIDOL-370 50ML BTL INJ ONE; +LACTATED RINGERS 1,000 ML IV SCH; -LIDOCAINE 1% INJ 10MG/ML (20 ML MDV) SQ ONE; +MIDAZOLAM 2 MG/2 ML VIAL IV PRN; +MIDAZOLAM 2 MG/2 ML VIAL ONE; +ONDANSETRON 4 MG/2 ML VIAL IVP ONE; +ONDANSETRON 4 MG/2 ML VIAL ONE; +PROPOFOL 10 MG/ML 20 ML VIAL IV ONE; +Pre Op ABX Message 1 EACH MISC MISCELLANE ONE; +SCOPOLAMINE 1.5MG/72HR PATCH TRANSDERM ONE; +fentaNYL (PF) 50 MCG/ML 2 ML AMP ONE
[2020-05-28 08:36] VITALS: RESP 16; TEMP 97.2
--- NOTE | 2020-05-28 09:35 | P.GSHP ---
History of Present Illness H&P Date: 05/28/20 Chief Complaint: Chronic pseudomonas infection urine This a 50-year-old female who's had chronic pseudomonas infections of the urine. Patient rents today for Port-A-Cath placement for IV infusion therapy Past Medical History Past Medical History: GERD/Reflux, Hypertension, Musculoskeletal Disorder Additional Past Medical History / Comment(s): Cerbral palsy, intellectual disabilities, incontinance., constipation & diarrhea., alert and understands, uses wheelchair but can walk with walker but she is very "stiff". Resident of [facility] since 2017. , intermittent abdominal pain., History of Any Multi-Drug Resistant Organisms: None Reported Past Surgical History: Orthopedic Surgery Additional Past Surgical History / Comment(s): bilat ankles, vaginal exam & pap test under anesthesia (08/03/19), PICC Past Anesthesia/Blood Transfusion Reactions: Unable to Obtain Additional Past Anesthesia/Blood Transfusion Reaction / Comment(s): no problems with anesthesia with vaginal exam. unknown family hx Smoking Status: Never smoker - Past Family History Mother Family Medical History: Unable to Obtain Medications and Allergies Home Medications Medication Instructions Recorded Confirmed Type Ascorbic Acid [Vitamin C] 500 mg PO DAILY 05/29/16 05/24/20 History Citalopram Hydrobromide [CeleXA] 40 mg PO QAM 05/29/16 05/24/20 History Loratadine [Claritin] 10 mg PO DAILY 05/29/16 05/24/20 History Sennosides-Docusate Sodium 2 tab PO HS 05/29/16 05/24/20 History [Senokot-S] busPIRone HCL [Buspar] 7.5 mg PO BID 05/29/16 05/24/20 History Atorvastatin [Lipitor] 10 mg PO HS 08/19/18 05/24/20 History Baclofen [Lioresal] 20 mg PO TID 08/19/18 05/24/20 History Cyclobenzaprine [Flexeril] 15 mg PO HS 08/19/18 05/24/20 History Lactulose [Constulose] 30 gm PO HS 08/19/18 05/24/20 History Melatonin 10 mg PO HS 08/19/18 05/24/20 History Omeprazole 20 mg PO QAM 08/19/18 05/24/20 History Ondansetron HCl [Zofran] 4 mg PO Q12HR PRN 08/19/18 05/24/20 History traZODone HCL [Desyrel] 100 mg PO HS 08/19/18 05/24/20 History Butalb/APAP/Caff 50-325-40Mg 1 tab PO BID PRN 05/12/19 05/24/20 History [Fioricet 50-325-40] Hydrochlorothiazide [Hydrodiuril] 25 mg PO DAILY 05/12/19 05/24/20 History Metoprolol Succinate [Toprol XL] 25 mg PO QAM 05/12/19 05/24/20 History Multivit-Min/FA/Lycopen/Lutein 1 tab PO DAILY 05/12/19 05/24/20 History [Centrum Silver Tablet] Oxybutynin Chloride [Ditropan] 5 mg PO TID 05/12/19 05/24/20 History Cholecalciferol (Vitamin D3) 2,000 unit PO DAILY 05/31/19 05/24/20 History [Vitamin D3] Metoclopramide HCl [Reglan] 10 mg PO TID 08/04/19 05/28/20 History Acetaminophen [Tylenol] 650 mg PO Q4H PRN 05/17/20 05/24/20 History SUMAtriptan SUCCINATE [Imitrex] 25 - 50 mg PO DAILY PRN 05/17/20 05/24/20 History Allergies Allergy/AdvReac Type Severity Reaction Status Date / Time No Known Allergies Allergy Verified 05/28/20 08:17 Surgical - Exam Vital Signs Temp Pulse Resp BP Pulse Ox 97.2 F L 106 H 16 116/78 97 05/28/20 08:34 05/28/20 08:34 05/28/20 08:34 05/28/20 08:34 05/28/20 08:34 - General well developed, well nourished, no distress - Eyes PERRL - ENT normal pinna - Neck no masses - Respiratory normal expansion - Cardiovascular Rhythm: regular - Abdomen Abdomen: soft, non tender Assessment and Plan Assessment: Chronic pseudomonas urinary tract infection. Patient will have Port-A-Cath placement for IV antibiotic infusion therapy.
--- NOTE | 2020-05-28 10:38 | P.OP ---
Date of Procedure: 05/28/20 Preoperative Diagnosis: Chronic Pseudomonas urinary tract infection Postoperative Diagnosis: Same Procedure(s) Performed: Insertion of right subclavian Port-A-Cath Anesthesia: MAC Surgeon: Jamarcus Viveros Estimated Blood Loss (ml): 5 Pathology: none sent Condition: stable Disposition: PACU Description of Procedure: MThe patient was placed on the operating table in the supine position. The patient received IV sedation. The patient's chest was prepped and draped in the usual sterile fashion. A roll had been placed between the shoulder blades in a longitudinal fashion. After prepping and draping the skin was anesthetized 1% local Xylocaine. And then using the Seldinger technique the subclavian vein was cannulated. A wire was placed into the vein and fluoroscopy position the wire at the atrial caval junction. Next the dilator sheath was placed over top the wire and the wire was withdrawn. The catheter was positioned at the atriocaval position. The catheter was placed through the sheath after the dilator was withdrawn. The sheath was then withdrawn. Position of the catheter was confirmed with fluoroscopy. The Port-A-Cath was connected to the catheter. The Port-A-Cath was flushed with saline and then heparinized saline. The skin was closed interrupted 3-0 Monocryl suture. Dermabond was applied. Patient tolerated procedure well and was sent to recovery room stable condition.ort
--- NOTE | 2020-05-28 11:10 | XR ---
EXAMINATION TYPE: XR chest 1V portable DATE OF EXAM: 05/28/2020 COMPARISON: NONE HISTORY: post op mediport TECHNIQUE: Single frontal view of the chest is obtained. FINDINGS: Right-sided central line seen with the tip overlying the SVC and no pneumothorax. Diffuse osteopenia. Subsegmental consolidation at both lung bases. No overt failure. IMPRESSION: Mediport appears in good position with no sizable pneumothorax.
--- NOTE | 2020-05-28 11:16 | FL ---
EXAMINATION TYPE: FL guided central line placemt HISTORY: Fluoroscopy time Impression: 1. Fluoroscopy support provided to the referring physician. 9 seconds of fluoroscopy provided.
[2020-05-28 12:02] VITALS: BP 120/80; PULSE 90
== END ==
LOC: OR 08:03
PROVIDERS: ATTEND Surgery
DX: N39.0 Urinary tract infection, site not specified (principal); B96.5 Pseudomonas (aeruginosa) (mallei) (pseudomallei) as the cause of diseases classified elsewhere; I10 Essential (primary) hypertension; K21.9 Gastro-esophageal reflux disease without esophagitis; F32.9 Major depressive disorder, single episode, unspecified; F41.9 Anxiety disorder, unspecified; D64.9 Anemia, unspecified; G80.9 Cerebral palsy, unspecified; F79 Unspecified intellectual disabilities; K59.09 Other constipation; E78.2 Mixed hyperlipidemia; Z98.890 Other specified postprocedural states; Z87.442 Personal history of urinary calculi; Z99.3 Dependence on wheelchair; Z79.899 Other long term (current) drug therapy
CPT/HCPCS: 77001; 71045; 36561; C1788; J2250; J1642; J2405; J3010; J2704

== ENCOUNTER 2020-06-07 10:46 | Inpatient (IN) | payer MEDICARE, OTHER ==
--- NOTE | 2020-06-07 11:13 | ED ---
Recheck HPI - General Source: patient, RN notes reviewed, Caregiver Mode of arrival: wheelchair Limitations: physical limitation <Ashu Manley - Last Filed: 06/07/20 12:51> <Dez Aquino - Last Filed: 06/07/20 13:25> - General Chief Complaint: Recheck/Abnormal Lab/Rx Stated Complaint: Low Hemoglobin Time Seen by Provider: 06/07/20 10:54 - History of Present Illness Initial Comments: This a 50-year-old female presents emergency room with caregiver chief complaint of anemia. Patient lab work yesterday which showed evidence of hemoglobin 5.6. Patient reportedly had a hemoglobin faint 6 and 7 in early April and which she did have an EGD at that time which showed no acute findings. Patient denies any abdominal pain, chest pain or shortness breath she does admit that she was tired. Caregiver states his stools have been dark but still has not been tested recently for blood. Patient denies any blood thinners. Patient has not required transfusion in the past. Patient does currently have a port for IV antibiotics treating chronic UTI. Patient recently had no fevers or chills. (Ashu Manley) - Related Data Home Medications Medication Instructions Recorded Confirmed Ascorbic Acid [Vitamin C] 500 mg PO DAILY@0600 05/29/16 06/07/20 Citalopram Hydrobromide [CeleXA] 40 mg PO DAILY@59905/29/16 06/07/20 Loratadine [Claritin] 10 mg PO DAILY@0600 05/29/16 06/07/20 Sennosides-Docusate Sodium 2 tab PO HS@0 05/29/16 06/07/20 [Senokot-S] busPIRone HCL [Buspar] 7.5 mg PO BID@0600,1900 05/29/16 06/07/20 Atorvastatin [Lipitor] 10 mg PO HS 08/19/18 06/07/20 Cyclobenzaprine [Flexeril] 10 mg PO HS@189908/19/18 06/07/20 Lactulose [Constulose] 20 gm PO HS@189908/19/18 06/07/20 Melatonin 10 mg PO HS@189908/19/18 06/07/20 traZODone HCL [Desyrel] 100 mg PO HS@189908/19/18 06/07/20 Butalb/APAP/Caff 50-325-40Mg 1 tab PO BID PRN 05/12/19 06/07/20 [Fioricet 50-325-40] Hydrochlorothiazide [Hydrodiuril] 25 mg PO DAILY@59905/12/19 06/07/20 Metoprolol Succinate [Toprol XL] 25 mg PO DAILY@59905/12/19 06/07/20 Multivit-Min/FA/Lycopen/Lutein 1 tab PO DAILY@59905/12/19 06/07/20 [Centrum Silver Tablet] Oxybutynin Chloride [Ditropan] 5 mg PO TID@0600,1600,189905/12/19 06/07/20 Cholecalciferol (Vitamin D3) 2,000 unit PO DAILY@59905/31/19 06/07/20 [Vitamin D3] Metoclopramide HCl [Reglan] 10 mg PO TID@0600,1600,189908/04/19 06/07/20 Acetaminophen [Tylenol] 650 mg PO Q4H PRN 05/17/20 06/07/20 SUMAtriptan SUCCINATE [Imitrex] 25 mg PO DAILY PRN 05/17/20 06/07/20 Baclofen [Lioresal] 20 mg PO TID@0600,1600,189906/07/20 06/07/20 Cetaphil Cleanser 1 applic TOPICAL BID@0600,189906/07/20 06/07/20 Chlorhexidine Gluconate [Peridex] 15 ml PO BID@06,189906/07/20 06/07/20 Cyclobenzaprine [Flexeril] 5 mg PO HS 06/07/20 06/07/20 Magnesium Hydroxide [Milk of 1 dose PO DAILY PRN 06/07/20 06/07/20 Magnesia] Mineral Oil 1 dose PO DAILY PRN 06/07/20 06/07/20 Omeprazole [PriLOSEC] 40 mg PO DAILY@72906/07/20 06/07/20 Ondansetron Odt [Zofran Odt] 4 mg PO Q12HR PRN 06/07/20 06/07/20 Polyethylene Glycol 3350 [Miralax] 17 gm PO DAILY@0600 06/07/20 06/07/20 SUMAtriptan SUCCINATE [Imitrex] 50 mg PO DAILY PRN 06/07/20 06/07/20 Triamcinolone 0.025% Cream 1 applic TOPICAL BID@0600,2100 06/07/20 06/07/20 [Kenalog 0.025% Cream] Allergies Allergy/AdvReac Type Severity Reaction Status Date / Time No Known Allergies Allergy Verified 06/07/20 11:20 Review of Systems ROS Other: All systems not noted in ROS Statement are negative. <Ashu Manley - Last Filed: 06/07/20 12:51> ROS Other: All systems not noted in ROS Statement are negative. <Dez Aquino - Last Filed: 06/07/20 13:25> ROS Statement: Those systems with pertinent positive or pertinent negative responses have been documented in the HPI. Past Medical History Past Medical History: GERD/Reflux, Hypertension, Musculoskeletal Disorder Additional Past Medical History / Comment(s): Cerbral palsy, intellectual disabilities, incontinance., constipation & diarrhea., alert and understands, uses wheelchair but can walk with walker but she is very "stiff". Resident of [facility] since 2017. , intermittent abdominal pain., History of Any Multi-Drug Resistant Organisms: None Reported Past Surgical History: Orthopedic Surgery Additional Past Surgical History / Comment(s): bilat ankles, vaginal exam & pap test under anesthesia (08/03/19), PICC Past Anesthesia/Blood Transfusion Reactions: Unable to Obtain Additional Past Anesthesia/Blood Transfusion Reaction / Comment(s): no problems with anesthesia with vaginal exam. unknown family hx Past Psychological History: Anxiety, Depression Smoking Status: Never smoker - Past Family History Mother Family Medical History: Unable to Obtain <Ashu Manley - Last Filed: 06/07/20 12:51> General Exam General appearance: alert, in no apparent distress Head exam: Present: atraumatic, normocephalic, normal inspection Eye exam: Present: normal appearance, PERRL, EOMI. Absent: scleral icterus, conjunctival injection, periorbital swelling ENT exam: Present: normal exam, normal oropharynx, mucous membranes moist Neck exam: Present: normal inspection, full ROM. Absent: tenderness, meningismus, lymphadenopathy Respiratory exam: Present: normal lung sounds bilaterally. Absent: respiratory distress, wheezes, rales, rhonchi, stridor Cardiovascular Exam: Present: regular rate, normal rhythm, normal heart sounds. Absent: systolic murmur, diastolic murmur, rubs, gallop, clicks GI/Abdominal exam: Present: soft, normal bowel sounds. Absent: distended, te nderness, guarding, rebound, rigid Rectal exam: Present: normal inspection, normal rectal tone, other (Exam performed with RN indira and viviane) Neurological exam: Present: alert, oriented X3, CN II-XII intact Skin exam: Present: warm, dry, intact, normal color. Absent: rash <Ashu Manley - Last Filed: 06/07/20 12:51> Course <Dez Aquino - Last Filed: 06/07/20 13:25> Vital Signs 06/07/20 06/07/20 06/07/20 10:48 13:08 13:16 Temperature 97.9 F 98.2 F 97.4 F L Pulse Rate 88 86 82 Respiratory 18 16 16 Rate Blood Pressure 107/73 122/75 123/85 O2 Sat by Pulse 100 100 97 Oximetry - Reevaluation(s) Reevaluation #1: 06/07/20 13:21 PA supervision: I personally evaluate this case patient does present with declining hemoglobin levels no history of GI bleed. On this examination however the patient did have heme positive stool. She is noted to be anemic with hemoglobin dropped to 7.3 was reported to be in the findings prior to arrival here. Patient will be admitted for inpatient evaluation and treatment. The case is discussed with Dr. Geller (Dez Aquino) Medical Decision Making - Lab Data Result diagrams: 06/07/20 11:22 06/07/20 11:23 <Ashu Manley - Last Filed: 06/07/20 12:51> - Lab Data Result diagrams: 06/07/20 11:22 06/07/20 11:23 <Dez Aquino - Last Filed: 06/07/20 13:25> - Medical Decision Making 30-year-old female presented for anemia. Patient's hemoglobin 7.3 which has been trending down. Patient did have prior 5.6 on lab work yesterday may be lab air. Patient was given Protonix, given 1 unit of blood as she is mildly sympto matic with fatigue. Patient will be admitted for further evaluation. (Ashu Manley) - Lab Data Lab Results 06/07/20 06/07/20 06/07/20 Range/Units 11:22 11:23 11:23 WBC 4.8 (3.8-10.6) k/uL RBC 3.55 L (3.80-5.40) m/uL Hgb 7.3 L (11.4-16.0) gm/dL Hct 24.9 L (34.0-46.0) % MCV 70.2 L (80.0-100.0) fL MCH 20.4 L (25.0-35.0) pg MCHC 29.1 L (31.0-37.0) g/dL RDW 14.9 (11.5-15.5) % Plt Count 355 (150-450) k/uL Neutrophils % 57 % Lymphocytes % 23 % Monocytes % 8 % Eosinophils % 7 % Basophils % 1 % Neutrophils # 2.8 (1.3-7.7) k/uL Lymphocytes # 1.1 (1.0-4.8) k/uL Monocytes # 0.4 (0-1.0) k/uL Eosinophils # 0.4 (0-0.7) k/uL Basophils # 0.0 (0-0.2) k/uL Hypochromasia Marked Poikilocytosis Slight Microcytosis Moderate PT 10.1 (9.0-12.0) sec INR 1.0 (<1.2) APTT 25.7 (22.0-30.0) sec Sodium 135 L (137-145) mmol/L Potassium 4.1 (3.5-5.1) mmol/L Chloride 102 (98-107) mmol/L Carbon Dioxide 25 (22-30) mmol/L Anion Gap 8 mmol/L BUN 14 (7-17) mg/dL Creatinine 0.47 L (0.52-1.04) mg/dL Est GFR (CKD-EPI)AfAm >90 (>60 ml/min/1.73 sqM) Est GFR (CKD-EPI)NonAf >90 (>60 ml/min/1.73 sqM) Glucose 91 (74-99) mg/dL Calcium 9.2 (8.4-10.2) mg/dL Total Bilirubin 0.2 (0.2-1.3) mg/dL AST 54 H (14-36) U/L ALT 72 H (4-34) U/L Alkaline Phosphatase 96 (38-126) U/L Troponin I (0.000-0.034) ng/mL Total Protein 6.5 (6.3-8.2) g/dL Albumin 3.9 (3.5-5.0) g/dL Lipase 62 (23-300) U/L Stool Occult Blood (Negative) Blood Type Blood Type Recheck Bld Type Recheck Status Antibody Screen Crossmatch Spec Expiration Date 06/07/20 06/07/20 06/07/20 Range/Units 11:23 11:28 12:36 WBC (3.8-10.6) k/uL RBC (3.80-5.40) m/uL Hgb (11.4-16.0) gm/dL Hct (34.0-46.0) % MCV (80.0-100.0) fL MCH (25.0-35.0) pg MCHC (31.0-37.0) g/dL RDW (11.5-15.5) % Plt Count (150-450) k/uL Neutrophils % % Lymphocytes % % Monocytes % % Eosinophils % % Basophils % % Neutrophils # (1.3-7.7) k/uL Lymphocytes # (1.0-4.8) k/uL Monocytes # (0-1.0) k/uL Eosinophils # (0-0.7) k/uL Basophils # (0-0.2) k/uL Hypochromasia Poikilocytosis Microcytosis PT (9.0-12.0) sec INR (<1.2) APTT (22.0-30.0) sec Sodium (137-145) mmol/L Potassium (3.5-5.1) mmol/L Chloride (98-107) mmol/L Carbon Dioxide (22-30) mmol/L Anion Gap mmol/L BUN (7-17) mg/dL Creatinine (0.52-1.04) mg/dL Est GFR (CKD-EPI)AfAm (>60 ml/min/1.73 sqM) Est GFR (CKD-EPI)NonAf (>60 ml/min/1.73 sqM) Glucose (74-99) mg/dL Calcium (8.4-10.2) mg/dL Total Bilirubin (0.2-1.3) mg/dL AST (14-36) U/L ALT (4-34) U/L Alkaline Phosphatase (38-126) U/L Troponin I <0.012 (0.000-0.034) ng/mL Total Protein (6.3-8.2) g/dL Albumin (3.5-5.0) g/dL Lipase (23-300) U/L Stool Occult Blood Positive H (Negative) Blood Type A Positive Blood Type Recheck A Pos Bld Type Recheck Status No Antibody Screen NEGATIVE Crossmatch See Detail Spec Expiration Date 06/10/2020 8478 Disposition <Ashu Manley - Last Filed: 06/07/20 12:51> <Dez Aquino - Last Filed: 06/07/20 13:25> Clinical Impression: Anemia, Melena Disposition: ADMITTED IP TO THIS [facility] Condition: Stable Referrals: Joaquim Swenson MD [Primary Care Provider] - 1-2 days
[2020-06-07 11:59] LABS: Partial Thromboplastin Time 25.7 sec (22.0-30.0); Prothrombin Time 10.1 sec (9.0-12.0)
[2020-06-07 12:03] LABS: Basophils % (A) 1 %; Eosinophils # (A) 0.4 k/uL (0-0.7); Eosinophils % (A) 7 %; HCT 24.9 % (34.0-46.0); HGB 7.3 gm/dL (11.4-16.0); Hypochromasia Marked; Lymphocytes # (A) 1.1 k/uL (1.0-4.8); Lymphocytes % (A) 23 %; MCH 20.4 pg (25.0-35.0); MCHC 29.1 g/dL (31.0-37.0); MCV 70.2 fL (80.0-100.0); Mean Platelet Volume 7.2; Microcytosis Moderate; Monocytes # (A) 0.4 k/uL (0-1.0); Monocytes % (A) 8 %; Neutrophils # (A) 2.8 k/uL (1.3-7.7); Neutrophils % (A) 57 %; Platelet Count 355 k/uL (150-450); Poikilocytosis Slight; RBC 3.55 m/uL (3.80-5.40); RDW 14.9 % (11.5-15.5); WBC 4.8 k/uL (3.8-10.6)
[2020-06-07 12:03] LABS: ALT 72 U/L (4-34); AST 54 U/L (14-36); African American GFR (CKD) >90 (>60 ml/min/1.73 sqM); Albumin 3.9 g/dL (3.5-5.0); Alkaline Phosphatase 96 U/L (38-126); Anion Gap 8 mmol/L; Blood Urea Nitrogen 14 mg/dL (7-17); Calcium 9.2 mg/dL (8.4-10.2); Carbon Dioxide 25 mmol/L (22-30); Chloride 102 mmol/L (98-107); Glucose 91 mg/dL (74-99); Non-African American GFR(CKD) >90 (>60 ml/min/1.73 sqM); Potassium 4.1 mmol/L (3.5-5.1); Sodium 135 mmol/L (137-145); Total Bilirubin 0.2 mg/dL (0.2-1.3); Total Protein 6.5 g/dL (6.3-8.2)
[2020-06-07] MEDS ORDERED: PANTOPRAZOLE 40 MG/10 ML VIAL IVP STA (12:51)
[2020-06-07] MEDS ORDERED: NALOXONE 0.4 MG/ML 1 ML VIAL IV PRN (12:52)
[2020-06-07] MEDS ORDERED: ONDANSETRON 4 MG/2 ML VIAL IVP PRN (12:52)
[2020-06-07] MEDS ORDERED: ACETAMINOPHEN TAB 325 MG TAB PO STA (15:29)
[2020-06-07] MEDS: SODIUM CHLORIDE 0.9% 1,000 ML IV SCH (16:12)
[2020-06-07] MEDS ORDERED: BUTALB/APAP/CAFF 50-325-40MG TAB PO PRN (16:41)
[2020-06-07] MEDS ORDERED: ONDANSETRON ODT 4 MG TAB PO PRN (16:41)
[2020-06-07] MEDS ORDERED: MAGNESIUM HYDROXIDE 2,400 MG/10 ML CUP PO PRN (16:41)
[2020-06-07] MEDS: CYCLOBENZAPRINE 10 MG TAB PO SCH (19:57)
[2020-06-07] MEDS: MELATONIN 5 MG TABLET PO SCH (19:57)
[2020-06-07] MEDS: OXYBUTYNIN CHLORIDE 5 MG TAB PO SCH (19:57)
[2020-06-07] MEDS: LACTULOSE 20 GM/30 ML CUP PO SCH (19:57)
[2020-06-07] MEDS: busPIRone HCl 5 MG TAB PO SCH (19:58)
[2020-06-07] MEDS: BACLOFEN 10 MG TAB PO SCH (19:58)
[2020-06-07] MEDS: METOCLOPRAMIDE 10 MG TAB PO SCH (19:59)
[2020-06-07] MEDS: ATORVASTATIN 10 MG TAB PO SCH (20:00)
--- NOTE | 2020-06-07 20:00 | P.HPIM ---
History of Present Illness H&P Date: 06/07/20 Chief Complaint: Low hemoglobin History of presenting complaint: This is a 50-year-old patient who follows with visiting physicians Dr. Muller. Has known cerebral palsy. Resident of a alf. Caregiver gives information to the ER to the blood work showed her hemoglobin to 5.6. She did have an EGD in April of this year which showed no acute findings. There has been abdominal pain. Apparently the patient's had dark stools. Patient has a port for IV antibiotics for UTI. Patient herself is a limited historian. Was able to answer simple questions. Denies any cough or shortness of breath. No abdominal pain. July 2019 patient and EGD by Dr. Atul Amaya was found to have severe linear erosions or ulcerations of the bed and distal esophagus consistent with severe LA grade D reflux esophagitis, moderate size hiatal hernia. Review of systems: GEN.: Tired EYES: None HEENT: None NECK: None RESPIRATORY: None CARDIOVASCULAR: None GASTROINTESTINAL: None GENITOURINARY: None MUSCULOSKELETAL: None LYMPHATICS: None HEMATOLOGICAL: None PSYCHIATRY: None NEUROLOGICAL: Does use a wheelchair Past medical history to include: Cerebral palsy, GERD, hypertension, hyperlipidemia, incontinent of stool and urine, mostly in wheelchair can use a walker. Recurrent UTIs. Social history: Lives at [facility]. Mostly the wheelchair. Close to see Dr. AMAYA. No smoking or alcohol. Family history: Patient cannot tell Physical examination: VITAL SIGNS: 98, 91, 16, 119/77, 98% room air GENERAL: BMI 24.7, sitting up bed, awake. EYES: Pupils equal. Conjunctiva palel. HEENT: External appearance of nose and ears normal, oral cavity grossly normal. NECK: JVD not raised; masses not palpable. HEART: First and second heart sounds are normal; no edema CHEST wall: Has a port on the right side. LUNGS: Respiratory rate normal; clear to auscultation. ABDOMEN: Soft, nontender, liver spleen not palpable, no masses palpable. PSYCH: Patient able to answer some simple questionsl. NEUROLOGICAL: Cranial nerves grossly intact; no facial asymmetry, power and sensation grossly intact. LYMPHATICS: No lymph nodes palpable in the axilla and neck INVESTIGATIONS, reviewed in the clinical context: White count 4.8 hemoglobin 7.3 platelets 355 potassium 4.1 creatinine 0.47 Stool occult blood positive Assessment: -Acute macrocytic anemia hemoglobin reported at home at 5.6 but repeat hemoglobin is 7.3. From GI bleed. -Acute GI bleed patient having dark stools at home. -Reflux esophagitis Moderate size hiatal hernia -Cerebral palsy -W and stool incontinence -Muscle spasm -Essential hypertension Plan: Patient is currently hemodynamically stable. Hold of blood transfusion. Consult GI possible endoscopy. Resume home medications. Past Medical History Past Medical History: GERD/Reflux, Hyperlipidemia, Hypertension, Musculoskeletal Disorder Additional Past Medical History / Comment(s): Cerbral palsy, intellectual disabilities, incontinence of urine and stool, mostly in wheelchair but can walk with walker and assistent/stiffly, constipation & diarrhea, intermitted epigastric pain, recurrent UTIs-currently has R chest port for antibiotics, occasional migraines. History of Any Multi-Drug Resistant Organisms: None Reported Past Surgical History: Orthopedic Surgery Additional Past Surgical History / Comment(s): EGD, colonoscopy, bilat ankles, vaginal exam & pap test under anesthesia (08/03/19), PICC , R chest port a cath Past Anesthesia/Blood Transfusion Reactions: No Reported Reaction Additional Past Anesthesia/Blood Transfusion Reaction / Comment(s): unknown family hx Past Psychological History: Anxiety, Depression Additional Psychological History / Comment(s): Pt resides at [facility]. She is mostly in wheelchair, can walk stiffly with walker and assist of one. She feeds herself but needs assistance with all other ADLs. Incontinent of urine and stool. SEES AT [facility]. Smoking Status: Never smoker Past Alcohol Use History: None Reported Past Drug Use History: None Reported - Past Family History Mother Family Medical History: Unable to Obtain Father Family Medical History: Unable to Obtain Medications and Allergies Home Medications Medication Instructions Recorded Confirmed Type Ascorbic Acid [Vitamin C] 500 mg PO DAILY@59905/29/16 06/07/20 History Citalopram Hydrobromide [CeleXA] 40 mg PO DAILY@59905/29/16 06/07/20 History Loratadine [Claritin] 10 mg PO DAILY@59905/29/16 06/07/20 History Sennosides-Docusate Sodium 2 tab PO HS@1900 05/29/16 06/07/20 History [Senokot-S] busPIRone HCL [Buspar] 7.5 mg PO BID@0600,0 05/29/16 06/07/20 History Atorvastatin [Lipitor] 10 mg PO HS 08/19/18 06/07/20 History Cyclobenzaprine [Flexeril] 10 mg PO HS@189908/19/18 06/07/20 History Lactulose [Constulose] 20 gm PO HS@189908/19/18 06/07/20 History Melatonin 10 mg PO HS@189908/19/18 06/07/20 History traZODone HCL [Desyrel] 100 mg PO HS@189908/19/18 06/07/20 History Butalb/APAP/Caff 50-325-40Mg 1 tab PO BID PRN 05/12/19 06/07/20 History [Fioricet 50-325-40] Hydrochlorothiazide [Hydrodiuril] 25 mg PO DAILY@59905/12/19 06/07/20 History Metoprolol Succinate [Toprol XL] 25 mg PO DAILY@59905/12/19 06/07/20 History Multivit-Min/FA/Lycopen/Lutein 1 tab PO DAILY@59905/12/19 06/07/20 History [Centrum Silver Tablet] Oxybutynin Chloride [Ditropan] 5 mg PO TID@0600,1600,189905/12/19 06/07/20 History Cholecalciferol (Vitamin D3) 2,000 unit PO DAILY@59905/31/19 06/07/20 History [Vitamin D3] Metoclopramide HCl [Reglan] 10 mg PO TID@0600,1600,189908/04/19 06/07/20 History Acetaminophen [Tylenol] 650 mg PO Q4H PRN 05/17/20 06/07/20 History SUMAtriptan SUCCINATE [Imitrex] 25 mg PO DAILY PRN 05/17/20 06/07/20 History Baclofen [Lioresal] 20 mg PO TID@0600,1600,189906/07/20 06/07/20 History Cetaphil Cleanser 1 applic TOPICAL BID@0600,189906/07/20 06/07/20 History Chlorhexidine Gluconate [Peridex] 15 ml PO BID@0600,1900 06/07/20 06/07/20 History Cyclobenzaprine [Flexeril] 5 mg PO HS 06/07/20 06/07/20 History Magnesium Hydroxide [Milk of 1 dose PO DAILY PRN 06/07/20 06/07/20 History Magnesia] Mineral Oil 1 dose PO DAILY PRN 06/07/20 06/07/20 History Omeprazole [PriLOSEC] 40 mg PO DAILY@0730 06/07/20 06/07/20 History Ondansetron Odt [Zofran Odt] 4 mg PO Q12HR PRN 06/07/20 06/07/20 History Polyethylene Glycol 3350 [Miralax] 17 gm PO DAILY@0600 06/07/20 06/07/20 History SUMAtriptan SUCCINATE [Imitrex] 50 mg PO DAILY PRN 06/07/20 06/07/20 History Triamcinolone 0.025% Cream 1 applic TOPICAL BID@0600,2100 06/07/20 06/07/20 History [Kenalog 0.025% Cream] Allergies Allergy/AdvReac Type Severity Reaction Status Date / Time No Known Allergies Allergy Verified 06/07/20 11:20 Physical Exam Vitals: Vital Signs Temp Pulse Pulse Resp BP BP Pulse Ox 06/07/20 18:42 98.0 F 90 18 125/82 99 06/07/20 16:45 98.1 F 91 18 161/79 98 06/07/20 16:00 16 06/07/20 15:53 98.0 F 91 16 119/77 06/07/20 15:34 91 16 123/88 98 06/07/20 13:56 98.1 F 79 18 124/75 100 06/07/20 13:26 97.7 F 83 16 119/75 100 06/07/20 13:16 97.4 F L 82 16 123/85 97 06/07/20 13:08 98.2 F 86 16 122/75 100 06/07/20 10:48 97.9 F 88 18 107/73 100 Intake and Output 06/07/20 06/07/20 06/07/20 06:59 14:59 22:59 Intake Total 0 310 Balance 0 310 Intake: Blood Product 0 310 Rc As-3 Unit 0 310 [id number] Other: Weight 61.235 kg 61.235 kg Results CBC & Chem 7: 06/07/20 11:22 06/07/20 11:23 Labs: Abnormal Lab Results - Last 24 Hours (Table) 06/07/20 06/07/20 06/07/20 Range/Units 11:22 11:23 11:28 RBC 3.55 L (3.80-5.40) m/uL Hgb 7.3 L (11.4-16.0) gm/dL Hct 24.9 L (34.0-46.0) % MCV 70.2 L (80.0-100.0) fL MCH 20.4 L (25.0-35.0) pg MCHC 29.1 L (31.0-37.0) g/dL Sodium 135 L (137-145) mmol/L Creatinine 0.47 L (0.52-1.04) mg/dL AST 54 H (14-36) U/L ALT 72 H (4-34) U/L Stool Occult Blood (Negative) Crossmatch See Detail 06/07/20 Range/Units 12:36 RBC (3.80-5.40) m/uL Hgb (11.4-16.0) gm/dL Hct (34.0-46.0) % MCV (80.0-100.0) fL MCH (25.0-35.0) pg MCHC (31.0-37.0) g/dL Sodium (137-145) mmol/L Creatinine (0.52-1.04) mg/dL AST (14-36) U/L ALT (4-34) U/L Stool Occult Blood Positive H (Negative) Crossmatch Thrombosis Risk Factor Assmnt - Choose All That Apply Any of the Below Risk Factors Present?: Yes Each Factor Represents 1 point: Age 41-60 years Other Risk Factors: No Other congenital or acquired thrombophilia - If yes, enter type in comment: No Thrombosis Risk Factor Assessment Total Risk Factor Score: 1 Thrombosis Risk Factor Assessment Level: Low Risk
[2020-06-07 20:03] LABS: Anisocytosis Slight; HCT 28.4 % (34.0-46.0); HGB 8.7 gm/dL (11.4-16.0); Hypochromasia Marked; MCH 21.7 pg (25.0-35.0); MCHC 30.6 g/dL (31.0-37.0); Mean Platelet Volume 8.3; Microcytosis Marked; Platelet Count 347 k/uL (150-450); Poikilocytosis Slight; RDW 17.4 % (11.5-15.5)
[2020-06-07] MEDS: PANTOPRAZOLE 40 MG/10 ML VIAL IV SCH (20:03)
[2020-06-07] MEDS: CYCLOBENZAPRINE 5 MG TAB PO SCH (20:07)
[2020-06-07] MEDS: traZODone HCL 100 MG TAB PO SCH (20:09)
[2020-06-08] MEDS: ACETAMINOPHEN TAB 325 MG TAB PO PRN ×2 (04:01→09:00)
[2020-06-08] MEDS: SODIUM CHLORIDE 0.9% 1,000 ML IV SCH ×2 (04:04→16:41)
[2020-06-08] MEDS: busPIRone HCl 5 MG TAB PO SCH ×2 (05:30→20:49)
[2020-06-08] MEDS: CITALOPRAM HYDROBROMIDE 20 MG TAB PO SCH (05:30)
[2020-06-08] MEDS: BACLOFEN 10 MG TAB PO SCH ×4 (05:30→20:49)
[2020-06-08] MEDS: ASCORBIC ACID 500 MG TAB PO SCH (05:30)
[2020-06-08] MEDS: METOPROLOL SUCCINATE (ER) 25 MG TAB.ER.24H PO SCH (05:30)
[2020-06-08] MEDS: METOCLOPRAMIDE 10 MG TAB PO SCH ×4 (05:30→20:49)
[2020-06-08] MEDS: LORATADINE 10 MG TAB PO SCH (05:30)
[2020-06-08] MEDS: OXYBUTYNIN CHLORIDE 5 MG TAB PO SCH ×3 (05:31→20:48)
[2020-06-08] MEDS: hydroCHLOROthiazide 25 MG TAB PO SCH (05:31)
[2020-06-08] MEDS: CHOLECALCIFEROL 1,000 UNIT TAB PO SCH (05:31)
[2020-06-08] MEDS: MULTIVITAMINS, THERA 1 EACH TAB PO SCH (05:36)
[2020-06-08] MEDS ORDERED: NON FORMULARY DRUG (Omeprazole 40 MG) PO SCH (07:30)
[2020-06-08 08:09] LABS: Anisocytosis Slight; Basophils # (A) 0.1 k/uL (0-0.2); Basophils % (A) 1 %; Eosinophils # (A) 0.2 k/uL (0-0.7); Eosinophils % (A) 4 %; HCT 33.1 % (34.0-46.0); HGB 9.8 gm/dL (11.4-16.0); Hypochromasia Marked; Lymphocytes % (A) 19 %; MCH 22.1 pg (25.0-35.0); MCHC 29.6 g/dL (31.0-37.0); MCV 74.9 fL (80.0-100.0); Microcytosis Moderate; Monocytes # (A) 0.5 k/uL (0-1.0); Monocytes % (A) 9 %; Neutrophils # (A) 3.4 k/uL (1.3-7.7); Neutrophils % (A) 63 %; Platelet Count 320 k/uL (150-450); Poikilocytosis Moderate; RBC 4.42 m/uL (3.80-5.40); RDW 18.7 % (11.5-15.5); WBC 5.4 k/uL (3.8-10.6)
[2020-06-08 08:26] LABS: African American GFR (CKD) >90 (>60 ml/min/1.73 sqM); Anion Gap 5 mmol/L; Blood Urea Nitrogen 9 mg/dL (7-17); Calcium 9.1 mg/dL (8.4-10.2); Carbon Dioxide 26 mmol/L (22-30); Chloride 107 mmol/L (98-107); Glucose 96 mg/dL (74-99); Non-African American GFR(CKD) >90 (>60 ml/min/1.73 sqM); Potassium 4.5 mmol/L (3.5-5.1); Sodium 138 mmol/L (137-145)
[2020-06-08] MEDS: PANTOPRAZOLE 40 MG/10 ML VIAL IV SCH ×2 (08:58→20:47)
[2020-06-08 12:05] LABS: % Iron Saturation 5.87 (12.00-45.00); Ferritin 10.8 ng/mL (10.0-291.0); Folate, Serum >24.0 ng/mL; Iron 20 ug/dL (50-170); Total Iron Binding Capacity 341 ug/dL (228-460)
--- NOTE | 2020-06-08 13:34 | CONS ---
CONSULTATION DATE OF SERVICE: 06/08/2020. REASON FOR CONSULTATION: Severe microcytic hypochromic anemia. HISTORY OF PRESENT ILLNESS: The patient is a 50-year-old pleasant white female with a history of cerebral palsy, resident of a [facility], was sent to the emergency room because of hemoglobin that routine labs showed a hemoglobin of 5.6 g/dL. She came to the emergency room and repeat CBC was 7.2 g/dL. Received 1 unit of PRBC transfusion. The patient has history of cerebral palsy and is a poor historian. However, she denies any abdominal pain. No nausea, vomiting. History of recurrent UTI's. She did have an upper endoscopy done by me a year ago that showed evidence of severe reflux esophagitis and since then has been on Prilosec 20 mg daily. Her last colonoscopy was by Dr. Hu in 2016. PAST MEDICAL HISTORY: Significant for cerebral palsy, GERD, hypertension, hyperlipidemia, recurrent UTI. PAST SURGICAL HISTORY: EGD and colonoscopy in the past as mentioned above, bilateral ankle surgery. SOCIAL HISTORY: No smoking, no alcohol use. FAMILY HISTORY: Unremarkable. MEDICATIONS: At home include vitamin C, Celexa, Claritin, BuSpar, Lipitor, Flexeril, Constulose, melatonin, Desyrel, Fioricet, HydroDIURIL, Toprol, Centrum Silver, Ditropan, Reglan, Tylenol, Imitrex, Lioresal, Peridex, Flexeril, Prilosec, Zofran, MiraLAX, Imitrex. ALLERGIES: None. REVIEW OF SYSTEMS: CARDIOPULMONARY: She denies any chest pain or shortness of breath. : No dysuria or hematuria. MUSCULOSKELETAL: Unremarkable. SKIN: Unremarkable. ENDOCRINE: Unable to obtain. NEUROLOGY: Cerebral palsy, but able to communicate reasonably well. PHYSICAL EXAMINATION: She appears comfortable, in no apparent distress. Vital signs are stable, blood pressure 131/91, pulse rate 82, temperature 91. HEENT: Examination unremarkable, conjunctivae are pink, sclerae nonicteric, oral cavity no lesions. NECK: No JVD or lymph node enlargement. CHEST: Clear to auscultation. HEART: Regular rate and rhythm. ABDOMEN: Soft, bowel sounds are positive, no organomegaly. EXTREMITIES: No pedal edema. SKIN: No rashes. NEUROLOGIC: Alert and oriented x3. No focal deficits. LABS: Hemoglobin 7.3, WBC 4.8, platelets 355. He received 2 units of PRBC transfusion, today hemoglobin is 9.8 g/dL and MCV is low at 74. Stool Hemoccult positive. IMPRESSION: 1. Microcytic hypochromic anemia consistent with iron-deficiency anemia secondary to occult gastrointestinal blood loss. Clinically, no evidence of active ongoing bleeding. 2. History of cerebral palsy. 3. History of severe gastroesophageal reflux disease. Upper endoscopy done in July of 2019 did show erosive esophagitis. RECOMMENDATION: 1. Will proceed with EGD, colonoscopy tomorrow. Will obtain consent from the patient's legal guardian. 2. Monitor CBC on a daily basis. 3. Continue Protonix 40 mg daily and will follow with you closely. Thank you for this consultation. MEGAN / BOON: [id number] /
[2020-06-08] MEDS ORDERED: PEG 3350-NA SULF,BICARB,CL/KCL 4,000 ML BOTTLE PO ONE (17:00)
[2020-06-08] MEDS: LACTULOSE 20 GM/30 ML CUP PO SCH (20:48)
[2020-06-08] MEDS: MELATONIN 5 MG TABLET PO SCH (20:48)
[2020-06-08] MEDS: CYCLOBENZAPRINE 10 MG TAB PO SCH (20:49)
[2020-06-08] MEDS: ATORVASTATIN 10 MG TAB PO SCH (20:50)
[2020-06-08] MEDS: CYCLOBENZAPRINE 5 MG TAB PO SCH (20:50)
--- NOTE | 2020-06-08 22:47 | P.PN ---
Progress Note - Text Progress Note Date: 06/08/20 Chief Complaint: Low hemoglobin History of presenting complaint: This is a 50-year-old patient who follows with visiting physicians Dr. Muller. Has known cerebral palsy. Resident of a prison. Caregiver gives information to the ER to the blood work showed her hemoglobin to 5.6. She did have an EGD in April of this year which showed no acute findings. There has been abdominal pain. Apparently the patient's had dark stools. Patient has a port for IV antibiotics for UTI. Patient herself is a limited historian. Was able to answer simple questions. Denies any cough or shortness of breath. No abdominal pain. July 2019 patient and EGD by Dr. Atul Amaya was found to have severe linear erosions or ulcerations of the bed and distal esophagus consistent with severe LA grade D reflux esophagitis, moderate size hiatal hernia. Admitted with severe anemia-hemoglobin of 5.6. Patient received 2 units of blood. Today-on clear liquids. No further GI bleed reported. Awaiting endoscopy. Laying in bed comfortable. Review of systems: Was done for constitutional, cardiovascular, GI, pulmonary. relevant finding as above Active Medications Acetaminophen (Tylenol Tab) 650 mg PO Q4H PRN PRN Reason: Pain or Fever > 100.5 Last Admin: 06/08/20 09:00 Dose: 650 mg Documented by: Acetaminophen/Butalbital/Caffeine (Fioricet 50-325-40) 1 each PO BID PRN PRN Reason: Headache Ascorbic Acid (Vitamin C) 500 mg PO DAILY@0600 [facility] Last Admin: 06/08/20 05:30 Dose: 500 mg Documented by: Atorvastatin Calcium (Lipitor) 10 mg PO HS [facility] Last Admin: 06/08/20 20:50 Dose: 10 mg Documented by: Baclofen (Lioresal) 20 mg PO TID@0600,1600,1900 [facility] Last Admin: 06/08/20 20:49 Dose: 20 mg Documented by: Buspirone HCl (Buspar) 7.5 mg PO BID@0600,1900 [facility] Last Admin: 06/08/20 20:49 Dose: 7.5 mg Documented by: Cholecalciferol (Vitamin D3 (25 Mcg = 1000 Iu)) 2,000 unit PO DAILY@0600 [facility] Last Admin: 06/08/20 05:31 Dose: 2,000 unit Documented by: Citalopram Hydrobromide (Celexa) 40 mg PO DAILY@0600 [facility] Last Admin: 06/08/20 05:30 Dose: 40 mg Documented by: Cyclobenzaprine HCl (Flexeril) 5 mg PO HS [facility] Last Admin: 06/08/20 20:50 Dose: 5 mg Documented by: Cyclobenzaprine HCl (Flexeril) 10 mg PO HS@1900 [facility] Last Admin: 06/08/20 20:49 Dose: 10 mg Documented by: Hydrochlorothiazide (Hydrodiuril) 25 mg PO DAILY@0600 [facility] Last Admin: 06/08/20 05:31 Dose: 25 mg Documented by: Sodium Chloride (Saline 0.9%) 1,000 mls @ 75 mls/hr IV .[id number] [facility] Last Admin: 06/08/20 16:41 Dose: 75 mls/hr Documented by: Lactulose (Cephulac) 20 gm PO HS@1900 [facility] Last Admin: 06/08/20 20:48 Dose: 20 gm Documented by: Loratadine (Claritin) 10 mg PO DAILY@0600 [facility] Last Admin: 06/08/20 05:30 Dose: 10 mg Documented by: Magnesium Hydroxide (Milk Of Magnesia) 2,400 mg PO DAILY PRN PRN Reason: Constipation Melatonin (Melatonin) 10 mg PO HS@1900 [facility] Last Admin: 06/08/20 20:48 Dose: 10 mg Documented by: Metoclopramide HCl (Reglan) 10 mg PO TID@0600,1600,1900 [facility] Last Admin: 06/08/20 20:49 Dose: 10 mg Documented by: Metoprolol Succinate (Toprol Xl) 25 mg PO DAILY@0600 [facility] Last Admin: 06/08/20 05:30 Dose: 25 mg Documented by: Multivitamins (Theragran) 1 each PO DAILY@0600 [facility] Last Admin: 06/08/20 05:36 Dose: 1 each Documented by: Naloxone HCl (Narcan) 0.2 mg IV Q2M PRN PRN Reason: Opioid Reversal Ondansetron HCl (Zofran) 4 mg IVP Q8HR PRN PRN Reason: Nausea And Vomiting Last Admin: 06/08/20 18:14 Dose: 4 mg Documented by: Ondansetron HCl (Zofran Odt) 4 mg PO Q12HR PRN PRN Reason: Nausea And Vomiting Oxybutynin Chloride (Ditropan) 5 mg PO TID@0600,1600,1900 [facility] Last Admin: 06/08/20 20:48 Dose: 5 mg Documented by: Pantoprazole Sodium (Protonix) 40 mg IV BID [facility] Last Admin: 06/08/20 20:47 Dose: 40 mg Documented by: Trazodone HCl (Desyrel) 100 mg PO HS@1900 [facility] Last Admin: 06/07/20 20:09 Dose: 100 mg Documented by: Physical examination: VITAL SIGNS: 98.3, 83, 16, 143/85, 98% room air GENERAL: Sitting up in bed, comfortable EYES: Pupils equal. Conjunctiva palel. HEENT: External appearance of nose and ears normal, oral cavity grossly normal. NECK: JVD not raised; masses not palpable. HEART: First and second heart sounds are normal; no edema CHEST wall: Has a port on the right side. LUNGS: Respiratory rate normal; clear to auscultation. ABDOMEN: Soft, nontender, liver spleen not palpable, no masses palpable. PSYCH: Patient able to answer some simple questionsl. INVESTIGATIONS, reviewed in the clinical context: White count 5.4 hemoglobin 9.8 potassium 4.5 Previous testing White count 4.8 hemoglobin 7.3 platelets 355 potassium 4.1 creatinine 0.47 Stool occult blood positive Assessment: -Acute macrocytic anemia hemoglobin reported at home at 5.6 from GI bleed. Did receive 2 units of blood. -Acute GI bleed patient having dark stools at home. -Reflux esophagitis -Moderate size hiatal hernia -Cerebral palsy -W and stool incontinence -Muscle spasm -Essential hypertension Plan: Patient be having the EGD colonoscopy tomorrow. Repeat hemoglobin. Medications to continue.
[2020-06-09] MEDS: traZODone HCL 100 MG TAB PO SCH ×2 (00:31→20:12)
[2020-06-09] MEDS: busPIRone HCl 5 MG TAB PO SCH ×2 (05:42→20:11)
[2020-06-09] MEDS: CHOLECALCIFEROL 1,000 UNIT TAB PO SCH (05:42)
[2020-06-09] MEDS: ASCORBIC ACID 500 MG TAB PO SCH (05:42)
[2020-06-09] MEDS: MULTIVITAMINS, THERA 1 EACH TAB PO SCH (05:42)
[2020-06-09] MEDS: CITALOPRAM HYDROBROMIDE 20 MG TAB PO SCH (05:42)
[2020-06-09] MEDS: BACLOFEN 10 MG TAB PO SCH ×3 (05:43→20:12)
[2020-06-09] MEDS: hydroCHLOROthiazide 25 MG TAB PO SCH (05:43)
[2020-06-09] MEDS: OXYBUTYNIN CHLORIDE 5 MG TAB PO SCH ×3 (05:43→20:11)
[2020-06-09] MEDS: LORATADINE 10 MG TAB PO SCH (05:43)
[2020-06-09] MEDS: METOPROLOL SUCCINATE (ER) 25 MG TAB.ER.24H PO SCH (05:43)
[2020-06-09] MEDS: SODIUM CHLORIDE 0.9% 1,000 ML IV SCH ×2 (05:43→16:22)
[2020-06-09] MEDS: METOCLOPRAMIDE 10 MG TAB PO SCH ×3 (05:48→20:12)
[2020-06-09] MEDS ORDERED: LIDOCAINE 1% INJ 10MG/ML (20 ML MDV) ONE (08:09)
[2020-06-09] MEDS ORDERED: PROPOFOL 10 MG/ML 20 ML VIAL IV ONE (08:09)
[2020-06-09] MEDS ORDERED: IV FLUID CONTINUATION 600 ML IV ONE (08:10)
--- NOTE | 2020-06-09 08:31 | P.PCN ---
Date of Procedure: 06/09/20 Procedure(s) Performed: BRIEF HISTORY: Patient is a 50-year-old, pleasant, white female with history of cerebrovascular admitted hospital with severe symptomatic anemia and hemoglobin of 6 g/dL.. She denies any active GI bleed.. She is scheduled for an upper endoscopy as well as colonoscopy today. However patient could not be the prep for colonoscopy today . PROCEDURE PERFORMED: Esophagogastroduodenoscopy with biopsy. PREOPERATIVE DIAGNOSIS: Severe symptomatic anemia and. IV sedation per anesthesia. PROCEDURE: After informed consent was obtained, the patient was brought into the endoscopy unit. IV sedation was administered by Anesthesia under continuous monitoring. Initially the Olympus GIF-140 video endoscope was inserted into the mouth. Esophagus intubated without any difficulty. It was gradually advanced into the stomach and duodenum and carefully examined. The bulb and the second p art of the duodenum appeared normal. Biopsies were done from the duodenum to rule out celiac disease. The scope at this time was withdrawn to the stomach, adequately insufflated with air, and upon careful examination, mucosa of the antrum, body, cardia and the fundus appeared normal. The scope was then withdrawn into the esophagus. Moderate size hiatal hernia noted. The GE junction was located at 38 cm from the incisors. There were linear deep ulcerations noted in the distal esophagus extending from 35-38 cm from the incisors consistent with LA grade B reflux esophagitis. Biopsies were done from these areas. The rest of esophagus appeared normal and the patient tolerated the procedure well. IMPRESSION: 1. Linear deep ulcerations involving the distal esophagus extending from 35-38 cm from the incisors with oozing consistent with severe grade D reflux esophagitis. 2. Moderate size hiatal hernia. RECOMMENDATIONS: The findings of this examination were discussed with the patient. Await biopsy results. Continue on Protonix 40 mg twice daily. Diet will be advanced as tolerated.. We will hold off on colonoscopy at this time..
[2020-06-09] MEDS: PANTOPRAZOLE 40 MG/10 ML VIAL IV SCH ×2 (08:55→20:12)
[2020-06-09] MEDS: LACTULOSE 20 GM/30 ML CUP PO SCH (20:12)
[2020-06-09] MEDS: MELATONIN 5 MG TABLET PO SCH (20:12)
[2020-06-09] MEDS: ATORVASTATIN 10 MG TAB PO SCH (20:12)
[2020-06-09] MEDS: CYCLOBENZAPRINE 10 MG TAB PO SCH (20:12)
[2020-06-09] MEDS: CYCLOBENZAPRINE 5 MG TAB PO SCH (20:22)
--- NOTE | 2020-06-09 22:46 | P.PN ---
Progress Note - Text Progress Note Date: 06/09/20 Chief Complaint: Low hemoglobin History of presenting complaint: This is a 50-year-old patient who follows with visiting physicians Dr. Muller. Has known cerebral palsy. Resident of a longterm. Caregiver gives information to the ER to the blood work showed her hemoglobin to 5.6. She did have an EGD in April of this year which showed no acute findings. There has been abdominal pain. Apparently the patient's had dark stools. Patient has a port for IV antibiotics for UTI. Patient herself is a limited historian. Was able to answer simple questions. Denies any cough or shortness of breath. No abdominal pain. July 2019 patient and EGD by Dr. Atul Amaya was found to have severe linear erosions or ulcerations of the bed and distal esophagus consistent with severe LA grade D reflux esophagitis, moderate size hiatal hernia. Admitted with severe anemia-hemoglobin of 5.6. Patient received 2 units of blood. Today-EGD showed linear deep ulcerations in the distal esophagus with oozing consistent with severe grade D reflux esophagitis. Moderate size hiatal hernia. Diet was resumed. Review of systems: Was done for constitutional, cardiovascular, GI, pulmonary. relevant finding as above Active Medications Acetaminophen (Tylenol Tab) 650 mg PO Q4H PRN PRN Reason: Pain or Fever > 100.5 Last Admin: 06/08/20 09:00 Dose: 650 mg Documented by: Acetaminophen/Butalbital/Caffeine (Fioricet 50-325-40) 1 each PO BID PRN PRN Reason: Headache Ascorbic Acid (Vitamin C) 500 mg PO DAILY@0600 [facility] Last Admin: 06/09/20 05:42 Dose: 500 mg Documented by: Atorvastatin Calcium (Lipitor) 10 mg PO HS [facility] Last Admin: 06/09/20 20:12 Dose: 10 mg Documented by: Baclofen (Lioresal) 20 mg PO TID@0600,1600,1900 [facility] Last Admin: 06/09/20 20:12 Dose: 20 mg Documented by: Buspirone HCl (Buspar) 7.5 mg PO BID@0600,1900 [facility] Last Admin: 06/09/20 20:11 Dose: 7.5 mg Documented by: Cholecalciferol (Vitamin D3 (25 Mcg = 1000 Iu)) 2,000 unit PO DAILY@0600 [facility] Last Admin: 06/09/20 05:42 Dose: 2,000 unit Documented by: Citalopram Hydrobromide (Celexa) 40 mg PO DAILY@599 [facility] Last Admin: 06/09/20 05:42 Dose: 40 mg Documented by: Cyclobenzaprine HCl (Flexeril) 5 mg PO HS [facility] Last Admin: 06/09/20 20:22 Dose: 5 mg Documented by: Cyclobenzaprine HCl (Flexeril) 10 mg PO HS@1900 [facility] Last Admin: 06/09/20 20:12 Dose: 10 mg Documented by: Hydrochlorothiazide (Hydrodiuril) 25 mg PO DAILY@06 [facility] Last Admin: 06/09/20 05:43 Dose: 25 mg Documented by: Sodium Chloride (Saline 0.9%) 1,000 mls @ 75 mls/hr IV .[id number] [facility] Last Admin: 06/09/20 16:22 Dose: 75 mls/hr Documented by: Lactulose (Cephulac) 20 gm PO HS@190 [facility] Last Admin: 06/09/20 20:12 Dose: 20 gm Documented by: Loratadine (Claritin) 10 mg PO DAILY@599 [facility] Last Admin: 06/09/20 05:43 Dose: 10 mg Documented by: Magnesium Hydroxide (Milk Of Magnesia) 2,400 mg PO DAILY PRN PRN Reason: Constipation Melatonin (Melatonin) 10 mg PO HS@1900 [facility] Last Admin: 06/09/20 20:12 Dose: 10 mg Documented by: Metoclopramide HCl (Reglan) 10 mg PO TID@0600,1600,1900 [facility] Last Admin: 06/09/20 20:12 Dose: 10 mg Documented by: Metoprolol Succinate (Toprol Xl) 25 mg PO DAILY@599 [facility] Last Admin: 06/09/20 05:43 Dose: 25 mg Documented by: Multivitamins (Theragran) 1 each PO DAILY@06 [facility] Last Admin: 06/09/20 05:42 Dose: 1 each Documented by: Naloxone HCl (Narcan) 0.2 mg IV Q2M PRN PRN Reason: Opioid Reversal Ondansetron HCl (Zofran) 4 mg IVP Q8HR PRN PRN Reason: Nausea And Vomiting Last Admin: 06/08/20 18:14 Dose: 4 mg Documented by: Ondansetron HCl (Zofran Odt) 4 mg PO Q12HR PRN PRN Reason: Nausea And Vomiting Oxybutynin Chloride (Ditropan) 5 mg PO TID@0600,1600,1900 [facility] Last Admin: 06/09/20 20:11 Dose: 5 mg Documented by: Pantoprazole Sodium (Protonix) 40 mg IV BID [facility] Last Admin: 06/09/20 20:12 Dose: 40 mg Documented by: Trazodone HCl (Desyrel) 100 mg PO HS@1900 [facility] Last Admin: 06/09/20 20:12 Dose: 100 mg Documented by: Physical examination: VITAL SIGNS: 97.7, 104, 18, 108/69, 96% room air GENERAL: Sitting up in bed, eating EYES: Pupils equal. Conjunctiva pale. HEENT: External appearance of nose and ears normal, oral cavity grossly normal. NECK: JVD not raised; masses not palpable. HEART: First and second heart sounds are normal; no edema CHEST wall: Has a port on the right side. LUNGS: Respiratory rate normal; clear to auscultation. ABDOMEN: Soft, nontender, liver spleen not palpable, no masses palpable. PSYCH: Patient able to answer some simple questions. INVESTIGATIONS, reviewed in the clinical context: Hemoglobin 9.8 Previous testing White count 4.8 hemoglobin 7.3 platelets 355 potassium 4.1 creatinine 0.47 Stool occult blood positive Assessment: -Acute macrocytic anemia hemoglobin reported at home at 5.6 from GI bleed. Did receive 2 units of blood. -EGD showing- linear deep ulcerations in the distal esophagus with oozing consistent with severe grade D reflux esophagitis. Moderate size hiatal hernia -Acute GI bleed patient having dark stools at home. -Reflux esophagitis -Moderate size hiatal hernia -Cerebral palsy -W and stool incontinence -Muscle spasm -Essential hypertension Plan: -Patient to continue on PPI. Diet is being advanced. Repeat hemoglobin in the morning. Hopefully discharge
[2020-06-10] MEDS: SODIUM CHLORIDE 0.9% 1,000 ML IV SCH (05:21)
[2020-06-10] MEDS: METOPROLOL SUCCINATE (ER) 25 MG TAB.ER.24H PO SCH (05:22)
[2020-06-10] MEDS: BACLOFEN 10 MG TAB PO SCH (05:22)
[2020-06-10] MEDS: METOCLOPRAMIDE 10 MG TAB PO SCH (05:22)
[2020-06-10] MEDS: CHOLECALCIFEROL 1,000 UNIT TAB PO SCH (05:22)
[2020-06-10] MEDS: MULTIVITAMINS, THERA 1 EACH TAB PO SCH (05:22)
[2020-06-10] MEDS: busPIRone HCl 5 MG TAB PO SCH (05:22)
[2020-06-10] MEDS: LORATADINE 10 MG TAB PO SCH (05:23)
[2020-06-10] MEDS: hydroCHLOROthiazide 25 MG TAB PO SCH (05:23)
[2020-06-10] MEDS: OXYBUTYNIN CHLORIDE 5 MG TAB PO SCH (05:23)
[2020-06-10] MEDS: ASCORBIC ACID 500 MG TAB PO SCH (05:23)
[2020-06-10] MEDS: CITALOPRAM HYDROBROMIDE 20 MG TAB PO SCH (05:23)
[2020-06-10] MEDS: PANTOPRAZOLE 40 MG/10 ML VIAL IV SCH (07:46)
[2020-06-10 08:01] VITALS: BP 125/87; PULSE 80; RESP 17; TEMP 98.2
[2020-06-10] MEDS ORDERED: FERROUS SULFATE 325 MG TAB PO SCH (09:15)
--- NOTE | 2020-06-10 09:20 | PN ---
PROGRESS NOTE DATE OF SERVICE: June 10, 2020 The patient is a 50-year-old pleasant white female with cerebral palsy, admitted to the hospital with severe symptomatic anemia and hemoglobin of 5.2, requiring 2 units of blood transfusion. She underwent an upper endoscopy yesterday that showed severe ulcerative reflux esophagitis. Presently on Protonix 40 mg twice daily, doing well. She reports no abdominal pain. No nausea, vomiting. PHYSICAL EXAMINATION: Blood pressure is 125/87, pulse rate 80, temperature 98.2. HEENT examination unremarkable. Conjunctivae pink. Sclerae anicteric. Oral cavity no lesions. Neck no JVD or lymph node enlargement. Chest was clear to auscultation. HEART: Regular rate and rhythm. ABDOMEN: Soft. Bowel sounds are positive. No organomegaly. Extremities: No pedal edema. NEUROLOGIC: Alert and oriented x3. No focal deficits. LABS: From today WBC 5.4, hemoglobin 9.8, platelets normal. Basic metabolic panel is within normal limits. IMPRESSION: 1. Severe symptomatic anemia with a hemoglobin of 5.6 requiring 2 units of blood transfusion. Presently hemoglobin stable at 9.8. EGD done 2 days ago that showed severe ulcerative reflux esophagitis. Colonoscopy was not done because she was not able to tolerate the prep. Currently doing well on Protonix 40 mg twice daily. 2. Severe gastroesophageal reflux disease. 3. History of cerebral palsy. 4. Iron deficiency anemia. RECOMMENDATIONS: 1. Continue Protonix 40 mg twice daily. 2. Start iron supplements twice daily. 3. Anti-reflux measures. 4. She can be discharged home with outpatient followup in a month. Thank you for this consultation. MMTOLUL / IJN: [id number] /
--- NOTE | 2020-06-10 18:32 | P.DS ---
Providers Date of admission: 06/07/20 12:53 Expected date of discharge: 06/10/20 Attending physician: Alex Geller Consults: 06/07/20 12:53 Consult Physician Urgent Consulting Provider: Roberto Aguiar Consult Reason/Comments: anemia Do you want consulting provider notified?: Yes Primary care physician: Joaquim Swenson MD Hospital Course: Chief Complaint: Low hemoglobin History of presenting complaint: This is a 50-year-old patient who follows with visiting physicians Dr. Muller. Has known cerebral palsy. Resident of a half-way. Caregiver gives information to the ER to the blood work showed her hemoglobin to 5.6. She did have an EGD in April of this year which showed no acute findings. There has been abdominal pain. Apparently the patient's had dark stools. Patient has a port for IV antibiotics for UTI. Patient herself is a limited historian. Was able to answer simple questions. Denies any cough or shortness of breath. No abdominal pain. July 2019 patient and EGD by Dr. Atul Aamya was found to have severe linear erosions or ulcerations of the bed and distal esophagus consistent with severe LA grade D reflux esophagitis, moderate size hiatal hernia. Admitted with severe anemia-hemoglobin of 5.6. Patient received 2 units of blood. EGD showed linear deep ulcerations in the distal esophagus with oozing consistent with severe grade D reflux esophagitis. Moderate size hiatal hernia. Does of PPI was increased. Hemoglobin remained stable. Today-. Comfortable. Tolerating a diet. Cleared by GI. Consultation: Dr. Atul Amaya from GI Physical examination: VITAL SIGNS: 98.2, 80, 17, 125/87, 98% room air GENERAL: Sitting up in chair, comfortable EYES: Pupils equal. Conjunctiva pale. HEENT: External appearance of nose and ears normal, oral cavity grossly normal. NECK: JVD not raised; masses not palpable. HEART: First and second heart sounds are normal; no edema CHEST wall: Has a port on the right side. LUNGS: Respiratory rate normal; clear to auscultation. ABDOMEN: Soft, nontender, liver spleen not palpable, no masses palpable. PSYCH: Patient able to answer some simple questions. INVESTIGATIONS, reviewed in the clinical context: Hemoglobin 9.8 Previous testing White count 4.8 hemoglobin 7.3 platelets 355 potassium 4.1 creatinine 0.47 Stool occult blood positive Assessment: -Acute macrocytic anemia hemoglobin reported at home at 5.6 from GI bleed. Did receive 2 units of blood. -EGD showing- linear deep ulcerations in the distal esophagus with oozing consistent with severe grade D reflux esophagitis. Moderate size hiatal hernia -Acute GI bleed patient having dark stools at home. POA -Severe grade D Reflux esophagitis -Moderate size hiatal hernia -Cerebral palsy -Chronic urine and stool incontinence -Chronic Muscle spasm -Essential hypertension Disposition: intermediate Patient Condition at Discharge: Stable Plan - Discharge Summary Discharge Rx Participant: No New Discharge Prescriptions: New Ferrous Sulfate [Iron (65 MG Elemental)] 325 mg PO BID-W/MEALS tab Continue Ascorbic Acid [Vitamin C] 500 mg PO DAILY@0600 busPIRone HCL [Buspar] 7.5 mg PO BID@0600,1900 Loratadine [Claritin] 10 mg PO DAILY@0600 Citalopram Hydrobromide [CeleXA] 40 mg PO DAILY@0600 Sennosides-Docusate Sodium [Senokot-S] 2 tab PO HS@1900 Atorvastatin [Lipitor] 10 mg PO HS Lactulose [Constulose] 20 gm PO HS@1900 Cyclobenzaprine [Flexeril] 10 mg PO HS@1900 traZODone HCL [Desyrel] 100 mg PO HS@1900 Melatonin 10 mg PO HS@1900 Butalb/APAP/Caff 50-325-40Mg [Fioricet 50-325-40] 1 tab PO BID PRN PRN Reason: Headache Oxybutynin Chloride [Ditropan] 5 mg PO TID@0600,1600,1900 Metoprolol Succinate [Toprol XL] 25 mg PO DAILY@0600 Hydrochlorothiazide [Hydrodiuril] 25 mg PO DAILY@0600 Multivit-Min/FA/Lycopen/Lutein [Centrum Silver Tablet] 1 tab PO DAILY@0600 Cholecalciferol (Vitamin D3) [Vitamin D3] 2,000 unit PO DAILY@0600 Metoclopramide HCl [Reglan] 10 mg PO TID@0600,1600,1900 Acetaminophen [Tylenol] 650 mg PO Q4H PRN PRN Reason: Pain Or Fever > 100.5 SUMAtriptan SUCCINATE [Imitrex] 25 mg PO DAILY PRN PRN Reason: migraines SUMAtriptan SUCCINATE [Imitrex] 50 mg PO DAILY PRN PRN Reason: Migraine Headache Ondansetron Odt [Zofran ODT] 4 mg PO Q12HR PRN PRN Reason: Nausea And Vomiting Mineral Oil 1 dose PO DAILY PRN PRN Reason: Constipation Magnesium Hydroxide [Milk of Magnesia] 1 dose PO DAILY PRN PRN Reason: Constipation Triamcinolone 0.025% Cream [Kenalog 0.025% Cream] 1 applic TOPICAL BID@0600,2100 Polyethylene Glycol 3350 [Miralax] 17 gm PO DAILY@06 Cyclobenzaprine [Flexeril] 5 mg PO HS Chlorhexidine Gluconate [Peridex] 15 ml PO BID@06,190 Cetaphil Cleanser 1 applic TOPICAL BID@06,190 Baclofen [Lioresal] 20 mg PO TID@0600,1600,1900 Changed Omeprazole [PriLOSEC] 40 mg PO BID #60 cap Discharge Medication List Ascorbic Acid [Vitamin C] 500 mg PO DAILY@59905/29/16 [History] Citalopram Hydrobromide [CeleXA] 40 mg PO DAILY@59905/29/16 [History] Loratadine [Claritin] 10 mg PO DAILY@59905/29/16 [History] Sennosides-Docusate Sodium [Senokot-S] 2 tab PO HS@189905/29/16 [History] busPIRone HCL [Buspar] 7.5 mg PO BID@0600,189905/29/16 [History] Atorvastatin [Lipitor] 10 mg PO HS 08/19/18 [History] Cyclobenzaprine [Flexeril] 10 mg PO HS@189908/19/18 [History] Lactulose [Constulose] 20 gm PO HS@189908/19/18 [History] Melatonin 10 mg PO HS@189908/19/18 [History] traZODone HCL [Desyrel] 100 mg PO HS@189908/19/18 [History] Butalb/APAP/Caff 50-325-40Mg [Fioricet 50-325-40] 1 tab PO BID PRN 05/12/19 [History] Hydrochlorothiazide [Hydrodiuril] 25 mg PO DAILY@59905/12/19 [History] Metoprolol Succinate [Toprol XL] 25 mg PO DAILY@59905/12/19 [History] Multivit-Min/FA/Lycopen/Lutein [Centrum Silver Tablet] 1 tab PO DAILY@59905/12/19 [History] Oxybutynin Chloride [Ditropan] 5 mg PO TID@0600,1600,1900 05/12/19 [History] Cholecalciferol (Vitamin D3) [Vitamin D3] 2,000 unit PO DAILY@0605/31/19 [History] Metoclopramide HCl [Reglan] 10 mg PO TID@0600,1600,1900 08/04/19 [History] Acetaminophen [Tylenol] 650 mg PO Q4H PRN 05/17/20 [History] SUMAtriptan SUCCINATE [Imitrex] 25 mg PO DAILY PRN 05/17/20 [History] Baclofen [Lioresal] 20 mg PO TID@0600,1600,1900 06/07/20 [History] Cetaphil Cleanser 1 applic TOPICAL BID@0600,189906/07/20 [History] Chlorhexidine Gluconate [Peridex] 15 ml PO BID@0600,0 06/07/20 [History] Cyclobenzaprine [Flexeril] 5 mg PO HS 06/07/20 [History] Magnesium Hydroxide [Milk of Magnesia] 1 dose PO DAILY PRN 06/07/20 [History] Mineral Oil 1 dose PO DAILY PRN 06/07/20 [History] Ondansetron Odt [Zofran ODT] 4 mg PO Q12HR PRN 06/07/20 [History] Polyethylene Glycol 3350 [Miralax] 17 gm PO DAILY@0606/07/20 [History] SUMAtriptan SUCCINATE [Imitrex] 50 mg PO DAILY PRN 06/07/20 [History] Triamcinolone 0.025% Cream [Kenalog 0.025% Cream] 1 applic TOPICAL BID@0600,2100 06/07/20 [History] Ferrous Sulfate [Iron (65 MG Elemental)] 325 mg PO BID-W/MEALS tab 06/10/20 [Rx] Omeprazole [PriLOSEC] 40 mg PO BID #60 cap 06/10/20 [Rx] Follow up Appointment(s)/Referral(s): Joaquim Swenson MD [Primary Care Provider] - 1-2 days Charlene Amaya MD [STAFF PHYSICIAN] - 4 Weeks (follow up one month. Office closed Please call to make appointment) Care [address],[place] [facility] [NON-STAFF] - Patient Instructions/Handouts: Gastroesophageal Reflux Disease (DC), Anemia (DC) Activity/Diet/Wound Care/Special Instructions: If [facility] cannot transport patient back then the public guardian will pay for van transport back. Discharge Disposition: HOME SELF-CARE
--- NOTE | 2020-06-12 04:55 | CDI ---
Documentation Clarification Form Date: 06/12/2020 From: David Keith Phone: If you have a question about this query, please contact Gabby Sheth, Fast Food Attendant at [phone] between 8am and 5pm. Admit Date: 06/07/2020 Discharge Date: 06/10/2020 Patient Name: Audrey Au Visit Number: [id number] ATTENTION: The Clinical Documentation Specialists (CDI) and [facility] Coding Staff appreciate your assistance in clarifying documentation. Please respond to the clarification below the line at the bottom and electronically sign. The CDI & [facility] Coding staff will review the response and follow-up if needed. Please note: Queries are made part of the Legal Health Record. If you have any questions, please contact the author of this message via ITS. Dear Dr Yimi Johnson MD., Please render your opinion on the clinical significance of the patients hemoglobin/hematocrit levels. HGB: 5.6gms at home , 8.7 at admission HCt: 28.4L History/Risk Factors: Gi Bleed, ulcer of esophagus Treatment: 2 units of blood transfusion. -Acute macrocytic anemia hemoglobin reported at home at 5.6 from GI bleed.Did receive 2 units of blood. -EGD showing- linear deep ulcerations in the distal esophagus with oozing consistent with severe grade D reflux esophagitis.Moderate size hiatal hernia In order to capture the severity of condition, please clarify Acute Blood loss anemia presence? YES NO Unable to determine Other, please specify YES MTDD
== END 2020-06-10 13:55 | disposition home or self-care (01) | DRG 381 ==
LOC: EC 10:46 → 4SSUR 12:53
PROVIDERS: ADMIT Hospitalist; ATTEND Hospitalist
PROC: 30233N1 Transfusion of Nonautologous Red Blood Cells into Peripheral Vein, Percutaneous Approach (ICD-10-PCS; 2020-06-09)
PROC: 0DB98ZX Excision of Duodenum, Via Natural or Artificial Opening Endoscopic, Diagnostic (ICD-10-PCS; principal; 2020-06-09 07:25)
PROC: 0DB58ZX Excision of Esophagus, Via Natural or Artificial Opening Endoscopic, Diagnostic (ICD-10-PCS; principal; 2020-06-09 07:25)
DX: K22.11 Ulcer of esophagus with bleeding (principal); D62 Acute posthemorrhagic anemia; K21.0 Gastro-esophageal reflux disease with esophagitis; I10 Essential (primary) hypertension; G80.9 Cerebral palsy, unspecified; F41.9 Anxiety disorder, unspecified; F32.9 Major depressive disorder, single episode, unspecified; E78.5 Hyperlipidemia, unspecified; F79 Unspecified intellectual disabilities; K44.9 Diaphragmatic hernia without obstruction or gangrene; M62.838 Other muscle spasm; D50.0 Iron deficiency anemia secondary to blood loss (chronic); D53.9 Nutritional anemia, unspecified; R32 Unspecified urinary incontinence; R15.9 Full incontinence of feces; Z11.59 Encounter for screening for other viral diseases; Z79.899 Other long term (current) drug therapy; Z98.890 Other specified postprocedural states; Z87.440 Personal history of urinary (tract) infections
CPT/HCPCS: 36415; 36430; 43239; 80048; 80053; 82272; 82607; 82728; 82746; 83540; 83550; 83690; 84484; 85025; 85027; 85610; 85730; 86850; 86900; 86901; 86920; 88305; 88312; 93005; 96374; 99285

== ENCOUNTER 2020-06-25 07:51 | Day surgery (SDC) | payer MEDICARE, OTHER ==
[2020-06-21 14:39] VITALS: BMI 26.6
[~2020-06-25 07:51] MED LIST changes: -ACETAMINOPHEN TAB 500 MG TAB ONE; -BUPIVACAIN-EPI 0.25%-1:200,000 30 ML VIAL SQ ONE; -DEXAMETHASONE SOD PHOSPHATE 10 MG/ML 1 ML VIAL IV ONE; -HEPARIN SODIUM,PORCINE 100 UNIT/ML 5 ML VIAL IV ONE; -HEPARIN SODIUM,PORCINE 5,000 UNIT/ML 1 ML VIAL ONE; -HYDROmorphone 0.5 MG/0.5 ML SYRINGE IVP PRN; +LIDOCAINE 1% (10MG/ML) FOR IV START INTRADERMA PRN; -MIDAZOLAM 2 MG/2 ML VIAL IV PRN; -MIDAZOLAM 2 MG/2 ML VIAL ONE; -ONDANSETRON 4 MG/2 ML VIAL IVP ONE; -ONDANSETRON 4 MG/2 ML VIAL ONE; -PROPOFOL 10 MG/ML 20 ML VIAL IV ONE; -Pre Op ABX Message 1 EACH MISC MISCELLANE ONE; -SCOPOLAMINE 1.5MG/72HR PATCH TRANSDERM ONE; -fentaNYL (PF) 50 MCG/ML 2 ML AMP ONE
--- NOTE | 2020-06-25 08:30 | P.GSHP ---
History of Present Illness H&P Date: 06/25/20 Chief Complaint: Removal of Port-A-Cath This a 50-year-old female who presents today for removal of Port-A-Cath. Patient history of chronic pseudomonas infection. Past Medical History Past Medical History: GERD/Reflux, Hyperlipidemia, Hypertension, Musculoskeletal Disorder Additional Past Medical History / Comment(s): Cerbral palsy, intellectual disabilities, incontinence of urine and stool, mostly in wheelchair but can walk with walker and assistent/stiffly, constipation & diarrhea, intermitted epigastric pain, recurrent UTIs-currently has R chest port for antibiotics, occasional migraines. History of Any Multi-Drug Resistant Organisms: None Reported Past Surgical History: Orthopedic Surgery Additional Past Surgical History / Comment(s): EGD, colonoscopy, bilat ankles, vaginal exam & pap test under anesthesia (08/03/19), PICC , R chest port a cath Past Anesthesia/Blood Transfusion Reactions: No Reported Reaction Additional Past Anesthesia/Blood Transfusion Reaction / Comment(s): unknown family hx Smoking Status: Never smoker - Past Family History Mother Family Medical History: Unable to Obtain Father Family Medical History: Unable to Obtain Medications and Allergies Home Medications Medication Instructions Recorded Confirmed Type Ascorbic Acid [Vitamin C] 500 mg PO DAILY@0600 05/29/16 06/21/20 History Citalopram Hydrobromide [CeleXA] 40 mg PO DAILY@0600 05/29/16 06/21/20 History Loratadine [Claritin] 10 mg PO DAILY@0600 05/29/16 06/21/20 History Sennosides-Docusate Sodium 2 tab PO HS@189905/29/16 06/21/20 History [Senokot-S] busPIRone HCL [Buspar] 7.5 mg PO BID@0600,1900 05/29/16 06/21/20 History Atorvastatin [Lipitor] 10 mg PO HS 08/19/18 06/21/20 History Cyclobenzaprine [Flexeril] 10 mg PO HS@189908/19/18 06/21/20 History Lactulose [Constulose] 20 gm PO HS@19008/19/18 06/21/20 History Melatonin 10 mg PO HS@189908/19/18 06/21/20 History traZODone HCL [Desyrel] 100 mg PO HS@1900 09/20/18 07/23/20 History Butalb/APAP/Caff 50-325-40Mg 1 tab PO BID PRN 05/12/19 06/21/20 History [Fioricet 50-325-40] Metoprolol Succinate [Toprol XL] 25 mg PO DAILY@59905/12/19 06/21/20 History Multivit-Min/FA/Lycopen/Lutein 1 tab PO DAILY@59905/12/19 06/21/20 History [Centrum Silver Tablet] Oxybutynin Chloride [Ditropan] 5 mg PO TID@0600,1600,189905/12/19 06/21/20 History hydroCHLOROthiazide [Hydrodiuril] 25 mg PO DAILY@59905/12/19 06/21/20 History Cholecalciferol (Vitamin D3) 2,000 unit PO DAILY@59905/31/19 06/21/20 History [Vitamin D3] Metoclopramide HCl [Reglan] 10 mg PO TID@0600,1600,189908/04/19 06/21/20 History Acetaminophen [Tylenol] 650 mg PO Q4H PRN 05/17/20 06/21/20 History SUMAtriptan succinate [Imitrex] 25 mg PO DAILY PRN 05/17/20 06/21/20 History Baclofen [Lioresal] 20 mg PO TID@0600,1600,0 06/07/20 06/21/20 History Cetaphil Cleanser 1 applic TOPICAL BID@0600,189906/07/20 06/21/20 History Chlorhexidine Gluconate [Peridex] 15 ml PO BID@0600,189906/07/20 06/21/20 History Cyclobenzaprine [Flexeril] 5 mg PO HS 06/07/20 06/21/20 History Magnesium Hydroxide [Milk of 1 dose PO DAILY PRN 06/07/20 06/21/20 History Magnesia] Mineral Oil 1 dose PO DAILY PRN 06/07/20 06/21/20 History Ondansetron Odt [Zofran ODT] 4 mg PO Q12HR PRN 06/07/20 06/21/20 History Polyethylene Glycol 3350 [Miralax] 17 gm PO DAILY@0600 06/07/20 06/21/20 History SUMAtriptan succinate [Imitrex] 50 mg PO DAILY PRN 06/07/20 06/21/20 History Triamcinolone 0.025% Cream 1 applic TOPICAL BID@0600,2100 06/07/20 06/21/20 History [Kenalog 0.025% Cream] Ferrous Sulfate [Iron (65 MG 325 mg PO BID-W/MEALS tab 06/10/20 06/21/20 Rx Elemental)] Omeprazole [PriLOSEC] 40 mg PO BID #60 cap 06/10/20 06/21/20 Rx Allergies Allergy/AdvReac Type Severity Reaction Status Date / Time No Known Allergies Allergy Verified 06/25/20 08:19 Surgical - Exam Vital Signs Temp Pulse Resp BP Pulse Ox 98.2 F 74 16 138/76 97 06/25/20 08:01 06/25/20 08:01 06/25/20 08:01 06/25/20 08:01 06/25/20 08:01 - General well developed, no distress - Eyes PERRL - ENT normal pinna - Neck no masses - Respiratory normal expansion - Cardiovascular Rhythm: regular - Abdomen Abdomen: soft, non tender Assessment and Plan Assessment: We'll perform removal of Port-A-Cath
[2020-06-25] MEDS ORDERED: ONDANSETRON 4 MG/2 ML VIAL IVP ONE (09:05)
[2020-06-25] MEDS ORDERED: PROPOFOL 10 MG/ML 20 ML VIAL IV ONE (09:11)
[2020-06-25] MEDS ORDERED: fentaNYL (PF) 50 MCG/ML 2 ML AMP ONE (09:11)
[2020-06-25] MEDS ORDERED: LIDOCAINE 1% INJ 10MG/ML (20 ML MDV) ONE (09:11)
[2020-06-25] MEDS ORDERED: MIDAZOLAM 2 MG/2 ML VIAL ONE (09:11)
[2020-06-25] MEDS ORDERED: LIDOCAINE 1% INJ 10MG/ML (20 ML MDV) SQ ONE ×2 (09:31)
--- NOTE | 2020-06-25 09:41 | P.OP ---
Date of Procedure: 06/25/20 Preoperative Diagnosis: Chronic pseudomonas infection Postoperative Diagnosis: Chronic pseudomonas infection Procedure(s) Performed: Removal of right subclavian Port-A-Cath Anesthesia: MAC Surgeon: Jamarcus Viveros Estimated Blood Loss (ml): 5 Pathology: none sent Condition: stable Disposition: PACU Description of Procedure: The patient's placed on the operating table supine position. She received general anesthesia. Her chest was prepped and draped usual sterile fashion. Th e skin was incised over the port. Using blunt and sharp dissection with cautery the port was dissected free. The catheter was removed well. The wound was packed for hemostasis. There is no bleeding seen. The skin was closed interrupted 3-0 Monocryl suture. Dermabond was applied. Patient top she will was sent to recovery room stable condition.
[2020-06-25 09:45] VITALS: TEMP 97
[2020-06-25 10:23] VITALS: PULSE 64
[2020-06-25 10:47] VITALS: RESP 20
[2020-06-25 10:48] VITALS: BP 116/79
== END 2020-06-25 11:16 | disposition home health service (06) ==
LOC: OR 07:51
PROVIDERS: ATTEND Surgery
DX: Z45.2 Encounter for adjustment and management of vascular access device (principal); N39.0 Urinary tract infection, site not specified; B96.5 Pseudomonas (aeruginosa) (mallei) (pseudomallei) as the cause of diseases classified elsewhere; I10 Essential (primary) hypertension; E78.5 Hyperlipidemia, unspecified; G43.909 Migraine, unspecified, not intractable, without status migrainosus; K21.9 Gastro-esophageal reflux disease without esophagitis; F79 Unspecified intellectual disabilities; G80.9 Cerebral palsy, unspecified; Z87.440 Personal history of urinary (tract) infections; Z79.899 Other long term (current) drug therapy; Z98.890 Other specified postprocedural states
CPT/HCPCS: 36590; 84703; J2250; J1644; J0690; J2405; J2001; J3010; J2704

== ENCOUNTER → 2020-10-15 | Outpatient (CLI) | payer MEDICARE, OTHER | END | disposition home or self-care (01) | LOC: LABWHC1 11:24 | PROVIDERS: ATTEND General Practice | DX: R19.7 Diarrhea, unspecified (principal); Z20.828 Contact with and (suspected) exposure to other viral communicable diseases | CPT/HCPCS: U0003; C9803 ==

== ENCOUNTER 2021-04-02 19:31 | Emergency (ER) | payer MEDICARE, OTHER ==
[2021-04-02] MEDS ORDERED: Acetaminophen-Codeine 300-30mg TAB PO STA (20:03)
--- NOTE | 2021-04-02 20:31 | XR ---
Result: Clinical History: Pain status post fall. Comparison: None available. Technique: 3 views of the left ankle. 3 views of the left foot. Findings: The bone mineralization is age-appropriate. There is no acute fracture or dislocation of the ankle or foot. There is pes planus. Otherwise the jaylin int spaces are preserved. There is soft tissue edema about the foot without soft tissue gas or radiog raphic evidence for osteomyelitis. There is hallux valgus and lateral deviation of the first through fifth MTP joints. There is chronic appearing deformity of the great toe interphalangeal joint as seen on the AP view. IMPRESSION: Soft tissue edema without acute osseous abnormality of the left ankle or foot. Pes planus.
--- NOTE | 2021-04-02 20:42 | ED ---
Lower Extremity Injury HPI - General Chief Complaint: Extremity Injury, Lower Stated Complaint: Fall Time Seen by Provider: 04/02/21 19:35 Source: patient, EMS Mode of arrival: EMS Limitations: physical limitation - History of Present Illness Initial Comments: 50-year-old female past medical history of cerebral palsy, intellectually disability who presents to emergency room with reported left heel pain. Patient reports that she followed up at on Thursday and has been having pain in the left heel. She normally wears ankle braces and is able to ambulate with a walker. States she has had difficulty and there are not providing her with any pain medications at her facility. She denies any numbness, tingling or weakness in her toes. No knee or calf pain. Eyes any other injuries from the fall. 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 - Related Data Home Medications Medication Instructions Recorded Confirmed Ascorbic Acid [Vitamin C] 500 mg PO DAILY@59905/29/16 06/21/20 Citalopram Hydrobromide [CeleXA] 40 mg PO DAILY@59905/29/16 06/21/20 Loratadine [Claritin] 10 mg PO DAILY@59905/29/16 06/21/20 Sennosides-Docusate Sodium 2 tab PO HS@189905/29/16 06/21/20 [Senokot-S] busPIRone HCL [Buspar] 7.5 mg PO BID@0600,189905/29/16 06/21/20 Atorvastatin [Lipitor] 10 mg PO HS 08/19/18 06/21/20 Cyclobenzaprine [Flexeril] 10 mg PO HS@189908/19/18 06/21/20 Lactulose [Constulose] 20 gm PO HS@189908/19/18 06/21/20 Melatonin 10 mg PO HS@189908/19/18 06/21/20 traZODone HCL [Desyrel] 100 mg PO HS@189908/19/18 06/21/20 Butalb/APAP/Caff 50-325-40Mg 1 tab PO BID PRN 05/12/19 06/21/20 [Fioricet 50-325-40] Metoprolol Succinate [Toprol XL] 25 mg PO DAILY@59905/12/19 06/21/20 Multivit-Min/FA/Lycopen/Lutein 1 tab PO DAILY@0600 05/12/19 06/21/20 [Centrum Silver Tablet] Oxybutynin Chloride [Ditropan] 5 mg PO TID@0600,1600,1900 05/12/19 06/21/20 hydroCHLOROthiazide [Hydrodiuril] 25 mg PO DAILY@0600 05/12/19 06/21/20 Cholecalciferol (Vitamin D3) 2,000 unit PO DAILY@0600 05/31/19 06/21/20 [Vitamin D3] Metoclopramide HCl [Reglan] 10 mg PO TID@0600,1600,1900 08/04/19 06/21/20 Acetaminophen [Tylenol] 650 mg PO Q4H PRN 05/17/20 06/21/20 SUMAtriptan succinate [Imitrex] 25 mg PO DAILY PRN 05/17/20 06/21/20 Baclofen [Lioresal] 20 mg PO TID@0600,1600,19006/07/20 06/21/20 Cetaphil Cleanser 1 applic TOPICAL BID@0600,1900 06/07/20 06/21/20 Chlorhexidine Gluconate [Peridex] 15 ml PO BID@0600,1900 06/07/20 06/21/20 Cyclobenzaprine [Flexeril] 5 mg PO HS 06/07/20 06/21/20 Magnesium Hydroxide [Milk of 1 dose PO DAILY PRN 06/07/20 06/21/20 Magnesia] Mineral Oil 1 dose PO DAILY PRN 06/07/20 06/21/20 Ondansetron Odt [Zofran ODT] 4 mg PO Q12HR PRN 06/07/20 06/21/20 Polyethylene Glycol 3350 [Miralax] 17 gm PO DAILY@0600 06/07/20 06/21/20 SUMAtriptan succinate [Imitrex] 50 mg PO DAILY PRN 06/07/20 06/21/20 Triamcinolone 0.025% Cream 1 applic TOPICAL BID@0600,2100 06/07/20 06/21/20 [Kenalog 0.025% Cream] Previous Rx's Medication Instructions Recorded Ferrous Sulfate [Iron (65 MG 325 mg PO BID-W/MEALS tab 06/10/20 Elemental)] Omeprazole [PriLOSEC] 40 mg PO BID #60 cap 06/10/20 Allergies Allergy/AdvReac Type Severity Reaction Status Date / Time No Known Allergies Allergy Verified 06/25/20 08:19 Review of Systems ROS Statement: Those systems with pertinent positive or pertinent negative responses have been documented in the HPI. ROS Other: All systems not noted in ROS Statement are negative. Past Medical History Past Medical History: GERD/Reflux, Hyperlipidemia, Hypertension, Musculoskeletal Disorder Additional Past Medical History / Comment(s): Cerbral palsy, intellectual disabilities, incontinence of urine and stool, mostly in wheelchair but can walk with walker and assistent/stiffly, constipation & diarrhea, intermitted epigastric pain, recurrent UTIs-currently has R chest port for antibiotics, occasional migraines. History of Any Multi-Drug Resistant Organisms: None Reported Past Surgical History: Orthopedic Surgery Additional Past Surgical History / Comment(s): EGD, colonoscopy, bilat ankles, vaginal exam & pap test under anesthesia (08/03/19), PICC , R chest port a cath Past Anesthesia/Blood Transfusion Reactions: No Reported Reaction Additional Past Anesthesia/Blood Transfusion Reaction / Comment(s): unknown family hx Past Psychological History: Anxiety, Depression Smoking Status: Never smoker - Past Family History Mother Family Medical History: Unable to Obtain Father Family Medical History: Unable to Obtain General Exam Limitations: physical limitation General appearance: alert, in no apparent distress External exam: Present: swelling (b/l dorsal feet. Both have chronic deformity and are turned out. Tenderness to palpation of left heel. Mild ecchymosis over lateral malleolus. 2+ DP and PT pulses. Intact sensation) Neurological exam: Present: alert Psychiatric exam: Present: normal affect, normal mood Skin exam: Present: warm, dry, intact, normal color. Absent: rash Course Vital Signs 04/02/21 04/02/21 19:34 21:20 Pulse Rate 109 H 105 H Respiratory 18 16 Rate Blood Pressure 152/86 131/98 O2 Sat by Pulse 97 98 Oximetry Medical Decision Making - Medical Decision Making Upon arrival patient was placed into room 9. There are history and physical exam was performed. Patient is given a Tylenol 3. She is sent over for an x- ray of her left ankle and foot. Results are reviewed and discussed the patient. At this time I did recommend rest, ice and elevating the left lower extremity. Take the Tylenol 3 as needed for pain control. Follow-up with orthopedic doctor for repeat imaging and evaluation within 1 week. Patient agreed to this. Was given written and verbal discharge instructions and discharged home in stable condition Disposition Clinical Impression: Fall, Left foot pain Disposition: HOME SELF-CARE Condition: Stable Instructions (If sedation given, give patient instructions): Foot Sprain (ED) Additional Instructions: Please use the pain medication as directed. Rest, ice and elevate the extremity. Follow up with the orthopedic doctor if you have continued pain for further imaging. Return to the ed for any new or worsening symptoms. Is patient prescribed a controlled substance at d/c from ED?: No Referrals: Joaquim Swenson MD [Primary Care Provider] - 1-2 days Corona Mcrae MD [STAFF PHYSICIAN] - 1-2 days Time of Disposition: 20:53
[2021-04-02] MEDS ORDERED: ACET/COD 300 MG/30 MG STARTER PACK 6 TAB BTL PO STA (20:50)
[2021-04-02 21:21] VITALS: BP 131/98; PULSE 105; RESP 16
== END 2021-04-02 21:54 | disposition home or self-care (01) ==
LOC: EC 19:31
DX: M79.672 Pain in left foot (principal); E78.5 Hyperlipidemia, unspecified; F32.9 Major depressive disorder, single episode, unspecified; F41.9 Anxiety disorder, unspecified; I10 Essential (primary) hypertension; K21.9 Gastro-esophageal reflux disease without esophagitis
CPT/HCPCS: 99283

== ENCOUNTER → 2024-10-17 | Outpatient (CLI) | payer MEDICARE, OTHER ==
--- NOTE | 2024-10-18 13:55 | MM ---
Reason for Exam: Screening (asymptomatic). Last mammogram was performed 5 year(s) and 5 month(s) ago. Patient History: Patient has no children. Postmenopausal. Risk Values: Ivon 5 year model risk: 1.2%. NCI Lifetime model risk: 8.1%. Prior Study Comparison: 10/19/2014 Bilateral Screening Mammogram, [facility]. 12/11/2015 Bilateral Screening Mammogram, [facility]. 05/23/2019 Bilateral Screening Mammogram, [facility]. Tissue Density: The breasts are heterogeneously dense, which may obscure small masses. Findings: Analyzed By CAD. Right breast: There is no suspicious group of microcalcifications or new suspicious mass. Left breast: There is no suspicious group of microcalcifications or new suspicious mass. Overall Assessment: Negative, BI-RAD 1 Management: Screening Mammogram of both breasts in [address] [facility] will attempt to contact patient to return for supplemental views and ultrasound if indicated. Patient should continue monthly self-breast exams. A clinical breast exam by your physician is recommended on an annual basis. This exam should not preclude additional follow-up of suspicious palpable abnormalities. Note on Ivon scores and lifetime risk: 1. A Ivon score greater than 3% is considered moderate risk. If this is the case, consider specialist referral to assess eligibility for a risk reducing agent. 2. If overall lifetime risk for the development of breast cancer is 20% or higher, the patient may qualify for future screening with alternating mammogram and breast MRI. [facility], , 10/18/2024 1:34 PM. Electronically signed and approved by: Dez Quiroz DO
== END | disposition home or self-care (01) ==
LOC: EEVIPCON 07:30 → RADMAMWWP 07:34
PROVIDERS: ATTEND General Practice
DX: Z12.31 Encounter for screening mammogram for malignant neoplasm of breast (principal); R92.333 Mammographic heterogeneous density, bilateral breasts; M21.00 Valgus deformity, not elsewhere classified, unspecified site; M21.071 Valgus deformity, not elsewhere classified, right ankle; Z78.0 Asymptomatic menopausal state; Z99.3 Dependence on wheelchair
CPT/HCPCS: 77063; 77067

== ENCOUNTER → 2025-06-01 | Outpatient (CLI) | payer MEDICARE, OTHER ==
--- NOTE | 2025-06-01 10:48 | CT ---
EXAMINATION TYPE: CT urogram wo/w con DATE OF EXAM: 06/01/2025 10:22 AM COMPARISON: None. CLINICAL INDICATION: Female, 55 years old with history of R31.0 GROSS HEMATURIA, Gross hematuria, TECHNIQUE: CT Urography was performed with unenhanced followed by enhanced images of the kidneys, ure ters and urinary bladder. Delayed images were obtained. 3D reconstruction performed on a separate w orkstation. IV CONTRAST: with IV Contrast, patient injected with 100 mL of Isovue 300. (None if empty) CT DLP: 2080.1 mGycm, Automated exposure control for dose reduction was used. FINDINGS: KIDNEYS/BLADDER: No hydronephrosis. No nephrolithiasis. No disctinct renal mass. Urinary bladder g rossly unremarkable. LUNG BASES-: No visible nodule. No infiltrate. LIVER/GB: No calcified gallstones. No space occupying hepatic lesion. Biliary tree is of normal ca liber. PANCREAS: No inflammation. No distinct mass. SPLEEN: No splenic enlargement. No lesion seen. ADRENALS: No nodule. No thickening. BOWEL: Moderate fixed hiatal hernia. Normal appendix. Normal bowel caliber. No inflammation. GENITAL ORGANS: No gross abnormality. LYMPH NODES: No greater than 1cm abdominal or pelvic lymph nodes are appreciated. AORTA: No significant abnormality. OSSEOUS STRUCTURES: No significant abnormality is seen. OTHER: Small fat-containing umbilical hernia. IMPRESSION: 1. No significant abnormality seen to account for the patient's symptoms of gross hematuria. Correlat e clinically. [facility], , 06/01/2025 10:46 AM
== END | disposition home or self-care (01) ==
LOC: RADCTMAIN 08:20
PROVIDERS: ATTEND Urology
DX: R31.0 Gross hematuria (principal)
CPT/HCPCS: 74178; 74400; Q9967